=== PATIENT | female | born 1980 | race Caucasian/White ===

== ENCOUNTER 2020-09-16 11:56 | Emergency (ER) | payer SELFPAY ==
[2020-09-16] MEDS ORDERED: NORMAL SALINE 1000 ML 1,000 ML IV ONE (12:46)
[2020-09-16] MEDS ORDERED: MECLIZINE HCL 25 MG TABLET PO ONE ×2 (12:48→16:15)
--- NOTE | 2020-09-16 12:55 | ER Document Report ---
ED Medical Screen (RME) - General Chief Complaint: Dizziness Stated Complaint: DIZZINESS Time Seen by Provider: 09/16/20 12:39 Primary Care Provider: GARRY MURO MD [Primary Care Provider] - Follow up as needed - [facility] Notes: 09/16/20 12:50 40-year-old female presents to the emergency room today for complaints of dizziness, nausea, and coughing that has been persistent for the last 6 days. Patient states that she feels unsteady, denies the room spinning or she is spinning. Patient reports she has been having some polydipsia. Reports a dry cough. Denies any positive Covid test or being around anybody who is Covid positive. Denies getting flu shot this year. Last menstrual cycle was 09/15/2020. Patient denies being a smoker. Denies any chest pain, shortness of breath, vomiting, abdominal pain, diarrhea, fevers or chills. I have greeted and performed a rapid initial assessment of this patient. A comprehensive ED assessment and evaluation of the patient, analysis of test results and completion of the medical decision making process will be conducted by additional ED providers. PHYSICAL EXAMINATION: GENERAL: Well-appearing, well-nourished and in no acute distress. HEAD: Atraumatic, normocephalic. EYES: Pupils equal round extraocular movements intact, conjunctiva are normal. ENT: Bilateral TM with effusion, no erythema. TM intact bilaterally NECK: Normal range of motion CV: s1, s2 regular LUNGS: No respiratory distress Musculoskeletal: Normal range of motion NEUROLOGICAL: Normal speech, normal gait. SKIN: Warm, Dry, normal turgor, no rashes or lesions noted. - Related Data Allergies/Adverse Reactions: No Known Allergies Allergy (Unverified 01/30/13 11:32) Past Medical History Endocrine Medical History: Denies: Hx Hyperthyroidism, Hx Hypothyroidism Physical Exam - Vital signs Vitals: Temp Pulse Resp BP Pulse Ox 98.0 F 81 18 131/77 H 93 09/16/20 12:33 09/16/20 12:33 09/16/20 12:33 09/16/20 12:33 09/16/20 12:33 Course - Vital Signs Vital signs: Temp Pulse Resp BP Pulse Ox 98.0 F 81 18 131/77 H 93 09/16/20 12:33 09/16/20 12:33 09/16/20 12:33 09/16/20 12:33 09/16/20 12:33 Doctor's Discharge - Discharge Referrals: GARRY MURO MD [Primary Care Provider] - Follow up as needed
[2020-09-16 13:30] LABS: ABSOLUTE LYMPHOCYTES (AUTO) 1.3 10^3/uL (0.5-4.7); ABSOLUTE MONOCYTES (AUTO) 0.2 10^3/uL (0.1-1.4); ABSOLUTE NEUT (AUTO) 4.6 10^3/uL (1.7-8.2); BASOPHILS % (AUTO) 0.4 % (0-2); HEMATOCRIT 38.9 % (36.0-47.0); HEMOGLOBIN 13.5 g/dL (12.0-15.5); LYMPHOCYTES % (AUTO) 20.6 % (13-45); MEAN CORPUSCULAR HEMOGLOBIN 29.5 pg (27.0-33.4); MEAN CORPUSCULAR HGB CONC 34.7 g/dL (32.0-36.0); MEAN CORPUSCULAR VOLUME 85 fl (80-97); MONOCYTES % (AUTO) 3.7 % (3-13); PLATELET COUNT 219 10^3/uL (150-450); RED BLOOD COUNT 4.58 10^6/uL (3.72-5.28); RED CELL DISTRIBUTION WIDTH 12.8 % (11.5-14.0); SEGMENTED NEUTROPHILS % (AUTO) 75.3 % (42-78); TOTAL CELLS COUNTED % (AUTO) 100 %; WHITE BLOOD COUNT 6.1 10^3/uL (4.0-10.5)
--- NOTE | 2020-09-16 13:30 | EKG REPORT ---
SEVERITY:- BORDERLINE ECG - SINUS RHYTHM BORDERLINE T ABNORMALITIES, ANTERIOR LEADS : Confirmed by: Carina Sanchez MD 16-Sep-2020 13:30:27
[2020-09-16 13:51] LABS: ALKALINE PHOSPHATASE 77 U/L (38-126); ANION GAP 16 (5-19); ASPARTATE AMINO TRANSFERASE 33 U/L (14-36); BILIRUBIN,DIRECT 0.3 mg/dL (0.0-0.4); BILIRUBIN,TOTAL 0.9 mg/dL (0.2-1.3); BLOOD UREA NITROGEN 14 mg/dL (7-20); CALCIUM 8.9 mg/dL (8.4-10.2); CARBON DIOXIDE 22 mmol/L (22-30); CHLORIDE 89 mmol/L (98-107); GLUCOSE 256 mg/dL (75-110); POTASSIUM 3.8 mmol/L (3.6-5.0)
--- NOTE | 2020-09-16 14:42 | RADIOLOGY REPORT (SQ) ---
EXAM DESCRIPTION: CT HEAD WITHOUT IMAGES COMPLETED DATE/TIME: 09/16/2020 2:27 pm REASON FOR STUDY: dizziness x 5d COMPARISON: None. TECHNIQUE: Axial images acquired through the brain without intravenous contrast. Images reviewed wi th bone, brain and subdural windows. Additional sagittal and coronal reconstructions were generated. Images stored on PACS. All CT scanners at this facility use dose modulation, iterative reconstruction, and/or weight based d osing when appropriate to reduce radiation dose to as low as reasonably achievable (ALARA). [facility]: Dose Right [facility]: CareDose [facility]: Dose Right [facility]: Teradose 4D [facility]: [email or web address] RADIATION DOSE: CT Rad equipment meets quality standard of care and radiation dose reduction techniq ues were employed. CTDIvol: 48.9 mGy. DLP: 960 mGy-cm. mGy. LIMITATIONS: None. FINDINGS: VENTRICLES: Normal size and contour. CEREBRUM: No masses. No hemorrhage. No midline shift. No evidence for acute infarction. Normal gra y/white matter differentiation. No areas of low density in the white matter. CEREBELLUM: No masses. No hemorrhage. No alteration of density. No evidence for acute infarction. EXTRAAXIAL SPACES: No fluid collections. No masses. ORBITS AND GLOBE: No intra- or extraconal masses. Normal contour of globe without masses. CALVARIUM: No fracture. PARANASAL SINUSES: No fluid or mucosal thickening. SOFT TISSUES: No mass or hematoma. OTHER: No other significant finding. IMPRESSION: NORMAL BRAIN CT WITHOUT CONTRAST. EVIDENCE OF ACUTE STROKE: NO. COMMENT: Quality ID # [id number]: Final reports with documentation of one or more dose reduction techniques (e.g., Automated exposure control, adjustment of the mA and/or kV according to patient size, use of iterative reconstruction technique) TECHNICAL DOCUMENTATION: JOB ID: [id number] 2010 [employer]- All Rights Reserved Reading location - IP/workstation name: [email or web address]
--- NOTE | 2020-09-16 14:43 | RADIOLOGY REPORT (SQ) ---
EXAM DESCRIPTION: CHEST SINGLE VIEW IMAGES COMPLETED DATE/TIME: 09/16/2020 2:31 pm REASON FOR STUDY: cough COMPARISON: 10/08/2009 EXAM PARAMETERS: NUMBER OF VIEWS: One view. TECHNIQUE: Single frontal radiographic view of the chest acquired. RADIATION DOSE: NA LIMITATIONS: None. FINDINGS: LUNGS AND PLEURA: Patchy peripheral infiltrates suspicious for viral pneumonia. No consol idation or effusions. MEDIASTINUM AND HILAR STRUCTURES: No masses. Contour normal. HEART AND VASCULAR STRUCTURES: Heart normal in size. Normal vasculature. BONES: No acute findings. HARDWARE: None in the chest. OTHER: No other significant finding. IMPRESSION: Patchy bilateral peripheral infiltrates suspicious for viral pneumonia. COMMENT: Commonly reported imaging features of COVID-19 1 pneumonia are present. Other processes s uch as influenza pneumonia and organizing pneumonia, as can be seen with drug toxicity and connective tissue disease, can cause a similar imaging pattern. [facility] TECHNICAL DOCUMENTATION: JOB ID: [id number] 2010 [email or web address]- All Rights Reserved Reading location - IP/workstation name: [email or web address]
--- NOTE | 2020-09-16 16:59 | ER Document Report ---
ED Dizziness/Weakness - General Chief Complaint: Dizziness Stated Complaint: DIZZINESS Time Seen by Provider: 09/16/20 12:39 Primary Care Provider: GARRY MURO MD [ACTIVE STAFF] - Follow up as needed Mode of Arrival: Ambulatory Information source: Patient Notes: 40-year-old female with no previous medical problems presents to the emergency room complaining of dizziness, subjective fever chills, increased thirst, cough, nausea for the past week. States she is been taking BC powder without relief. Along with some Delsym for cough. She denies any ill contacts. She denies any known COVID-19 exposure. Does not feel like she is spinning of the room spinning. She cannot describe the dizziness. No history of vertigo. No head trauma or head injuries. TRAVEL OUTSIDE OF THE [place] IN LAST 30 DAYS: No - Related Data Allergies/Adverse Reactions: No Known Allergies Allergy (Unverified 01/30/13 11:32) Past Medical History - General Information source: Patient - Social History Smoking Status: Never Smoker Chew tobacco use (# tins/day): No Frequency of alcohol use: None Drug Abuse: None Family History: DM Endocrine Medical History: Denies: Hx Hyperthyroidism, Hx Hypothyroidism Review of Systems - Review of Systems Constitutional: Chills, Fever EENT: No symptoms reported Cardiovascular: Dizziness. denies: Chest pain, Palpitations Respiratory: Cough Gastrointestinal: Nausea. denies: Diarrhea, Vomiting, Constipation Genitourinary: No symptoms reported Musculoskeletal: No symptoms reported Skin: No symptoms reported Hematologic/Lymphatic: No symptoms reported Neurological/Psychological: No symptoms reported -: Yes All other systems reviewed and negative Physical Exam - Vital signs Vitals: Temp Pulse Resp BP Pulse Ox 98.0 F 81 18 131/77 H 93 09/16/20 12:33 09/16/20 12:33 09/16/20 12:33 09/16/20 12:33 09/16/20 12:33 - General General appearance: Appears well, Alert In distress: Mild - HEENT Head: Normocephalic, Atraumatic Eyes: Normal Pupils: PERRL External canal: Normal Tympanic membrane: Normal Sinus: Normal Nasal: Normal Pharynx: Normal Neck: Normal - Respiratory Respiratory status: No respiratory distress Chest status: Nontender Breath sounds: Rhonchi - Scattered. No: Rales, Stridor, Wheezing Chest palpation: Normal - Cardiovascular Rhythm: Regular Heart sounds: Normal auscultation Murmur: No - Neurological Neuro grossly intact: Yes Cognition: Normal Orientation: AAOx4 Nessa Coma Scale Eye Opening: Spontaneous [place] Coma Scale Verbal: Oriented [place] Coma Scale Motor: Obeys Commands Nessa Coma Scale Total: 15 Speech: Normal Motor strength normal: LUE, RUE, LLE, RLE Sensory: Normal - Skin Skin Temperature: Warm Skin Moisture: Dry Skin Color: Normal Course - Re-evaluation Re-evalutation: 09/16/20 17:06 Patient was evaluated during the global COVID-19 pandemic and that diagnosis was suspected/considered upon their initial presentation. Their evaluation, treatment and testing was consistent with current guidelines for patients who presents with complaints or systems that may be related to COVID-19. 09/16/20 17:20 Reviewed initial labs, CT head and chest x-ray results with patient. Counseled that her chest x-ray is consistent with a viral pneumonia possible COVID-19 related. IV fluids infusing. Repeat sodium after fluids are completed. Will need a urinalysis, orthostatics, Covid swab ordered. 09/16/20 17:20 09/16/20 17:34 Vital signs are stable. Patient is tolerating p.o. fluids. Negative orthostatics. Repeat sodium pending. Urinalysis pending. 09/16/20 17:35 09/16/20 19:40 All test results reviewed with the patient. Sodium has improved. Reviewed hemoglobin A1c of 9.8 with patient. No signs of DKA. Patient was counseled on the importance of following a diabetic diet. Will start patient on Metformin. Aware of need for outpatient follow-up with a primary care physician for management of her diabetes. Patient did have Covid testing. Is aware she needs to self quarantine until she gets her Covid test results back. Patient was given strict return to the emergency room guidelines. Return for any new or worsening symptoms. All questions were answered. Patient verbalized understanding and agrees with plan of care. Case was staffed with attending Dr Cordon who reviewed all labs, xrays and ct and is agreeable to d/c with plant to start on Metformin. 09/16/20 21:15 - Vital Signs Vital signs: Temp Pulse Resp BP Pulse Ox 98.7 F 88 20 140/68 H 96 09/16/20 20:18 11/20/20 20:18 09/16/20 20:18 09/16/20 20:18 09/16/20 20:18 - Laboratory Result Diagrams: 09/16/20 13:02 09/16/20 18:10 Laboratory results interpreted by me: 09/16/20 09/16/20 09/16/20 13:02 13:02 18:10 Sodium 127.2 L 128.7 L Chloride 89 L Glucose 256 H Hemoglobin A1c % 9.8 H Urine Protein Urine Glucose (UA) Urine Ketones Urine Blood Urine Urobilinogen 09/16/20 18:10 Sodium Chloride Glucose Hemoglobin A1c % Urine Protein 30 H Urine Glucose (UA) >=500 H Urine Ketones 80 H Urine Blood SMALL H Urine Urobilinogen 2.0 H - Diagnostic Test Radiology reviewed: Reports reviewed - EKG Interpretation by Me EKG shows normal: Sinus rhythm Rate: Normal Additional EKG results interpreted by me: 09/16/20 16:57 EKG was interpreted by ER physician Dr. Leblanc No acute STEMI Normal sinus rhythm Rate 81 Normal axis Borderline T wave abnormalities 09/16/20 16:58 Discharge - Discharge Clinical Impression: Dizziness, COVID-19, Viral pneumonia Nausea & vomiting Qualifiers: Vomiting type: unspecified Vomiting Intractability: non-intractable Qualified Code(s): R11.2 - Nausea with vomiting, unspecified Diabetes Qualifiers: Diabetes mellitus type: type 2 Diabetes mellitus detention insulin use: without oysterman use Diabetes mellitus complication status: without complication Qualified Code(s): E11.9 - Type 2 diabetes mellitus without complications Condition: Stable Disposition: HOME, SELF-CARE Instructions: COVID-19 Guidance for Persons Under Investigation, Diabetes (OM), Dizziness (OM), Viral Pneumonia (OM) Additional Instructions: You will be notified of your Covid test in 3 to 5 days. You are required to self quarantine until you get your Covid test results back. Take the Metformin as prescribed. Is imperative that you follow-up outpatient with a primary care physician. Diabetic diet. Monitor your blood sugars. Return to the emergency room for any new or worsening symptoms. Prescriptions: Metformin HCl [Glucophage 500 mg Tablet] 500 mg PO DAILY #30 tablet Referrals: GARRY MURO MD [ACTIVE STAFF] - Follow up as needed
[2020-09-16 18:41] LABS: APPEARANCE,URINE CLEAR; BILIRUBIN,URINE NEGATIVE (NEGATIVE); COLOR,URINE YELLOW; GLUCOSE, URINE >=500 mg/dL (NEGATIVE); KETONES,URINE 80 mg/dL (NEGATIVE); LEUKOCYTE ESTERASE,URINE NEGATIVE (NEGATIVE); NITRITE,URINE NEGATIVE (NEGATIVE); PROTEIN,URINE 30 mg/dL (NEGATIVE); URINE SPECIFIC GRAVITY 1.023
[2020-09-16 20:23] VITALS: BP 140/68
== END 2020-09-16 20:25 | disposition home or self-care (01) ==
LOC: ER 11:56
DX: J18.9 Pneumonia, unspecified organism (principal); R42 Dizziness and giddiness; R50.9 Fever, unspecified; R11.2 Nausea with vomiting, unspecified; Z20.828 Contact with and (suspected) exposure to other viral communicable diseases; E11.9 Type 2 diabetes mellitus without complications
CPT/HCPCS: 93005; 99285; 96360; 36415; 84702; 83735; 84295; 85025; 87635; 80053; 81001; 84484; 83036; 71045; 70450; 93010; J7030; C9803

== ENCOUNTER 2020-09-21 21:41 | Inpatient (IN) | payer SELFPAY ==
--- NOTE | 2020-09-21 22:59 | EKG REPORT ---
SEVERITY:- BORDERLINE ECG - SINUS TACHYCARDIA BORDERLINE T ABNORMALITIES, INFERIOR LEADS : Confirmed by: Ammon Jensen MD 21-Sep-2020 22:58:51
--- NOTE | 2020-09-21 23:09 | ER Document Report ---
ED Respiratory Problem - General Stated Complaint: DIFFICULTY IN BREATHING/COUGH/DIZZINESS Time Seen by Provider: 09/21/20 23:00 Notes: Patient is a 40 year old female that comes to the Emergency Department for chief complaint of difficulty breathing, pain with deep breaths, feeling rundown, and intermittent fevers. She states that she was seen 5 days ago, told she most likely had COVID-19, she states she was sent home, she states she is worsened since then. She states she was told yesterday that she had a negative COVID-19 test however. She states she has felt feverish for the past day. She denies sore throat, vomiting, or any other complaints. She has a history of type 2 diabetes, on oral medication. She denies smoking, COPD, asthma history. She denies any medical history otherwise. TRAVEL OUTSIDE OF THE [place] IN LAST 30 DAYS: No - Related Data Allergies/Adverse Reactions: No Known Allergies Allergy (Unverified 01/30/13 11:32) Past Medical History - General Information source: Patient - Social History Smoking Status: Never Smoker Frequency of alcohol use: None Drug Abuse: None Lives with: Family Family History: DM Endocrine Medical History: Reports: Hx Diabetes Mellitus Type 2. Denies: Hx Hyperthyroidism, Hx Hypothyroidism Review of Systems - Review of Systems Constitutional: No symptoms reported EENT: No symptoms reported Cardiovascular: No symptoms reported Respiratory: No symptoms reported Gastrointestinal: No symptoms reported Genitourinary: No symptoms reported Female Genitourinary: No symptoms reported Musculoskeletal: No symptoms reported Skin: No symptoms reported Hematologic/Lymphatic: No symptoms reported Neurological/Psychological: No symptoms reported Physical Exam - Vital signs Vitals: Temp Pulse Resp BP Pulse Ox 98.2 F 101 H 24 H 104/70 89 L 09/21/20 22:01 09/21/20 22:01 09/21/20 22:01 09/21/20 22:01 09/21/20 22:01 - Notes Notes: GENERAL: Alert. Slightly ill-appearing but otherwise unremarkable. No signs of distress. HEAD: Normocephalic, atraumatic. EYES: Pupils equal, round, and reactive to light. Extraocular movements intact. ENT: Oral mucosa moist, tongue midline. Oropharynx unremarkable. Airway patent. NECK: Full range of motion. Supple. Trachea midline. No lymphadenopathy. LUNGS: Rales heard in the right mid to lower lung bases and questionably in the left lower lung evangelista. No tachypnea, wheezing, signs of distress. Otherwise unremarkable. Nontender chest. HEART: Regular rate and rhythm. No murmur ABDOMEN: Soft, non-tender. Non-distended. EXTREMITIES: Moves all 4 extremities spontaneously. No edema, normal radial and dorsalis pedis pulses bilaterally. No cyanosis. BACK: no cervical, thoracic, lumbar midline tenderness. No saddle anesthesia, normal distal neurovascular exam. Moves all extremities in full range of motion. NEUROLOGICAL: Alert and oriented x3. Normal speech. Cranial nerves II through XII grossly intact. Strength 5/5 in all extremities. PSYCH: Normal affect, normal mood. SKIN: Warm, dry, normal turgor. No rashes or lesions noted. Course - Re-evaluation Re-evalutation: Patient has rales especially in the right lung evangelista, she is hypoxic in the mid to upper 80s on room air and was placed on oxygen. However she is speaking in full sentences, she is not tachycardic, she is otherwise nontoxic in appearance. Chest x-ray indicates worsening pneumonia, I do suspect COVID-19, influenza will be tested as well. CBC, chemistry nonspecific, troponin is not elevated, BNP is not elevated. I did discuss with patient her hyponatremia, she denies alcohol use, she does admit that she drinks water constantly. EKG unremarkable. Reevaluate patient and discussed with her. Antibiotics initiated, starting dexamethasone and also IV fluids because of her hyperglycemia. Patient is in agreement with admission. Discussed with Dr. Houston, hospitalist. Patient will be admitted to the medical floor for pneumonia and hypoxia with oxygen requirement. - Vital Signs Vital signs: Temp Pulse Resp BP Pulse Ox 98.6 F 101 H 17 102/76 95 09/22/20 03:01 09/21/20 22:01 09/22/20 03:01 09/22/20 03:01 09/22/20 03:01 - Laboratory Result Diagrams: 09/21/20 23:45 09/21/20 23:45 Laboratory results interpreted by me: 09/21/20 09/21/20 09/21/20 23:45 23:45 23:45 VBG pH 7.47 H Sodium 127.2 L Potassium 3.1 L Chloride 87 L Glucose 237 H Magnesium 2.4 H AST 48 H Albumin 3.4 L - EKG Interpretation by Me Additional EKG results interpreted by me: EKG shows sinus tachycardia at a rate of 100, normal axis, there are flattened T waves inferiorly but no T wave inversions or seven changes in consecutive leads. QTc 465. Discharge - Discharge Clinical Impression: Hypoxia, Shortness of breath, Person under investigation for COVID-19 Bilateral pneumonia Qualifiers: Pneumonia type: due to unspecified organism Lung location: unspecified part of lung Qualified Code(s): J18.9 - Pneumonia, unspecified organism Condition: Stable Disposition: ADMITTED INPATIENT Admitting Provider: Rosemarie (Hospitalist) Unit Admitted: Medical Floor
--- NOTE | 2020-09-21 23:43 | RADIOLOGY REPORT (SQ) ---
EXAM DESCRIPTION: XR CHEST 1 VIEW COMPLETED DATE/TME: 09/21/2020 23:14 CLINICAL HISTORY: 40 years, Female, hypoxia, rales in right lung COMPARISON: September 16, 2020 NUMBER OF VIEWS: 1 TECHNIQUE: Portable AP upright view of the chest was obtained at 11:08 PM. LIMITATIONS: None. FINDINGS: Moderate patchy bilateral infiltration is identified, overall increased from the prior examination, more so within the right lung base. There is stable, mild cardiac enlargement. There is no evidence of pleural effusion or pneumothorax. IMPRESSION: Worsening bilateral infiltration. copyright 2010 [employer]- All Rights Reserved
[2020-09-21] MEDS ORDERED: NORMAL SALINE 1000 ML 1,000 ML IV ONE (23:47)
[2020-09-21] MEDS ORDERED: CEFTRIAXONE 1 GM/D5W RTU 1 GM/50 ML RTUPB IV ONE (23:47)
[2020-09-21] MEDS ORDERED: AZITHROMYCIN INJ 500 MG VIAL IV ONE (23:48)
[2020-09-22 00:11] LABS: VENOUS BLOOD BASE EXCESS 5.7 mmol/L; VENOUS BLOOD HCO3 30.1 mmol/L (20-32); VENOUS BLOOD PCO2 42.8 mmHg (35-63); VENOUS BLOOD PH 7.47 (7.30-7.42)
[2020-09-22 00:16] LABS: ABSOLUTE EOSINOPHILS # (AUTO) 0.1 10^3/uL (0.0-0.6); ABSOLUTE LYMPHOCYTES (AUTO) 1.4 10^3/uL (0.5-4.7); ABSOLUTE MONOCYTES (AUTO) 0.5 10^3/uL (0.1-1.4); ABSOLUTE NEUT (AUTO) 4.1 10^3/uL (1.7-8.2); BASOPHILS % (AUTO) 0.4 % (0-2); EOSINOPHILS % (AUTO) 2.1 % (0-6); HEMATOCRIT 37.1 % (36.0-47.0); HEMOGLOBIN 12.9 g/dL (12.0-15.5); LYMPHOCYTES % (AUTO) 22.3 % (13-45); MEAN CORPUSCULAR HEMOGLOBIN 29.7 pg (27.0-33.4); MEAN CORPUSCULAR HGB CONC 34.8 g/dL (32.0-36.0); MEAN CORPUSCULAR VOLUME 85 fl (80-97); MONOCYTES % (AUTO) 7.9 % (3-13); PLATELET COUNT 425 10^3/uL (150-450); RED BLOOD COUNT 4.35 10^6/uL (3.72-5.28); RED CELL DISTRIBUTION WIDTH 12.7 % (11.5-14.0); SEGMENTED NEUTROPHILS % (AUTO) 67.3 % (42-78); TOTAL CELLS COUNTED % (AUTO) 100 %; WHITE BLOOD COUNT 6.1 10^3/uL (4.0-10.5)
[2020-09-22 00:25] LABS: ALBUMIN 3.4 g/dL (3.5-5.0); ALKALINE PHOSPHATASE 111 U/L (38-126); ANION GAP 10 (5-19); ASPARTATE AMINO TRANSFERASE 48 U/L (14-36); BILIRUBIN,DIRECT 0.2 mg/dL (0.0-0.4); BILIRUBIN,TOTAL 0.8 mg/dL (0.2-1.3); BLOOD UREA NITROGEN 9 mg/dL (7-20); CALCIUM 8.7 mg/dL (8.4-10.2); CARBON DIOXIDE 30 mmol/L (22-30); CHLORIDE 87 mmol/L (98-107); GLUCOSE 237 mg/dL (75-110); POTASSIUM 3.1 mmol/L (3.6-5.0); TOTAL PROTEIN 6.9 g/dL (6.3-8.2)
[2020-09-22 00:35] LABS: NT PRO BNP 91 pg/mL (<125)
[2020-09-22 00:36] LABS: TROPONIN I < 0.012 ng/mL
[2020-09-22] MEDS ORDERED: DEXAMETHASONE SOD PHOS INJ 10 MG/1 ML VIAL IV ONE (00:44)
[2020-09-22] MEDS ORDERED: ACETAMINOPHEN 325 MG TABLET PO PRN (01:29)
[2020-09-22] MEDS ORDERED: POTASSIUM CHLORIDE 10 MEQ TABLET.ER PO ONE ×2 (01:34→15:00)
[2020-09-22] MEDS ORDERED: MAG HYDROX/AL HYDROX/SIMETH SUSP 30 ML UDCUP PO PRN (01:35)
[2020-09-22] MEDS ORDERED: ONDANSETRON HCL INJ/PF 4 MG/2 ML SDV IV PRN (01:35)
[2020-09-22] MEDS ORDERED: GUAIFENESIN/D-METHORPHAN (200-20 MG) SYRUP 10 ML PO PRN (01:40)
[2020-09-22] MEDS ORDERED: DEXTROSE 40% GEL 15 GM TUBE PO PRN ×2 (01:42)
[2020-09-22] MEDS ORDERED: GLUCAGON,HUMAN RECOMB 1 MG INJ IM PRN (01:42)
[2020-09-22] MEDS ORDERED: DEXTROSE 50%-WATER 25 GM/50 ML DISP.SYRIN IV PRN ×2 (01:42)
[2020-09-22] MEDS ORDERED: IBUPROFEN 400 MG TABLET PO PRN (01:51)
--- NOTE | 2020-09-22 02:04 | PDOC H&P ---
History of Present Illness Admission Date/PCP: 09/22/20 01:18 Patient complains of: Shortness of breath and cough History of Present Illness: LOLI EM is a 40 year old female with history of diabetes mellitus type 2, morbid obesity, who presents to the hospital with complaints of shortness of breath and cough. This has been going on for about a week. Cough is productive of yellowish sputum. She denies any hemoptysis. She admits to body aches which are mild. She also admits to subjective fevers. Shortness of breath was quite bad and she did had some dizziness and actually came to the ER about 4 days ago. At that time patient was tested for COVID-19 and discharged home on isolation. She was later called and told that her COVID-19 test was negative. Given the surprise, she decided to come back to the hospital to find out what was wrong wi th her. Her symptoms actually have not progressed since then but about the same. However, this time she was noted to be hypoxic at 88% on room air. Chest x-ray still shows bilateral infiltrates. Past Medical History Endocrine Medical History: Reports: Diabetes Mellitus Type 2 Past Surgical History Past Surgical History: Reports: Section Social History Information Source: Patient Smoking Status: Current Some Day Smoker Frequency of Alcohol Use: None Hx Recreational Drug Use: No - Advance Directive Resuscitation Status: Full Code Family History Family History: DM Parental Family History Reviewed: Yes Children Family History Reviewed: Yes Sibling(s) Family History Reviewed.: Yes Medication/Allergy Home Medications: Docusate Sodium [Colace 100 mg Capsule] 100 mg PO BID 03/06/13 Ibuprofen [Motrin 800 Mg Tablet] 800 mg PO Q8H 03/06/13 Oxycodone HCl/Acetaminophen [Percocet 5-325 mg Tablet] 1 - 2 tab PO Q4HP PRN 03/06/13 Pnv W-O Ca No5/Fe Fumarate/FA [-U Capsule] 1 cap PO DAILY 03/06/13 Metformin HCl [Glucophage 500 mg Tablet] 500 mg PO DAILY #30 tablet 09/16/20 Allergies/Adverse Reactions: No Known Allergies Allergy (Unverified 01/30/13 11:32) Review of Systems Constitutional: PRESENT: chills, fever(s), headache(s) Eyes: ABSENT: visual disturbances Ears: ABSENT: hearing changes Nose, Mouth, and Throat: PRESENT: headache(s) Cardiovascular: PRESENT: chest pain - Parasternal pleuritic when she coughs. ABSENT: edema Respiratory: PRESENT: cough, dyspnea, sputum. ABSENT: hemoptysis Gastrointestinal: ABSENT: diarrhea, nausea, vomiting Genitourinary: ABSENT: dysuria Musculoskeletal: ABSENT: muscle weakness Integumentary: ABSENT: diaphoresis Neurological: PRESENT: dizziness Endocrine: ABSENT: polyuria Hematologic/Lymphatic: ABSENT: easy bleeding Allergic/Immunologic: PRESENT: other - Mild rhinorrhea Physical Exam Vital Signs: Temp Pulse Resp BP Pulse Ox 98.2 F 101 H 21 H 100/68 95 09/21/20 22:01 09/21/20 22:01 09/22/20 01:00 09/22/20 00:01 09/22/20 01:00 Intake & Output 09/20/20 09/21/20 09/22/20 06:59 06:59 06:59 Weight 119.1 kg General appearance: PRESENT: no acute distress, cooperative Head exam: PRESENT: normocephalic Eye exam: PRESENT: EOMI Neck exam: ABSENT: JVD Respiratory exam: PRESENT: crackles, symmetrical, tachypnea, unlabored. ABSENT: accessory muscle use, retraction, wheezes Cardiovascular exam: PRESENT: RRR, +S1, +S2. ABSENT: tachycardia GI/Abdominal exam: PRESENT: soft. ABSENT: rebound, rigid, tenderness Extremities exam: ABSENT: pedal edema Neurological exam: PRESENT: alert, awake, oriented to person, oriented to place, oriented to time, oriented to situation Psychiatric exam: ABSENT: agitated, anxious Focused psych exam: ABSENT: pressured speech Skin exam: ABSENT: jaundice Results Laboratory Results: 09/21/20 23:45 09/21/20 23:45 09/21/20 09/21/20 09/21/20 23:45 23:45 23:45 WBC 6.1 RBC 4.35 Hgb 12.9 Hct 37.1 MCV 85 MCH 29.7 MCHC 34.8 RDW 12.7 Plt Count 425 Seg Neutrophils % 67.3 VBG pH 7.47 H VBG pCO2 42.8 VBG HCO3 30.1 VBG Base Excess 5.7 Sodium 127.2 L Potassium 3.1 L Chloride 87 L Carbon Dioxide 30 Anion Gap 10 BUN 9 Creatinine 0.80 Est GFR ( Amer) > 60 Glucose 237 H Calcium 8.7 Magnesium Total Bilirubin 0.8 AST 48 H Alkaline Phosphatase 111 Total Protein 6.9 Albumin 3.4 L Serum HCG, Qual 09/21/20 09/21/20 23:45 23:45 WBC RBC Hgb Hct MCV MCH MCHC RDW Plt Count Seg Neutrophils % VBG pH VBG pCO2 VBG HCO3 VBG Base Excess Sodium Potassium Chloride Carbon Dioxide Anion Gap BUN Creatinine Est GFR ( Amer) Glucose Calcium Magnesium 2.4 H Total Bilirubin AST Alkaline Phosphatase Total Protein Albumin Serum HCG, Qual NEGATIVE 09/21/20 23:45 Troponin I < 0.012 NT-Pro-B Natriuret Pep 91 Impressions: Chest X-Ray 09/21/20 23:08 IMPRESSION: Worsening bilateral infiltration. copyright 2010 [employer]- All Rights Reserved Assessment and Plan - Diagnosis (1) Atypical pneumonia Is this a current diagnosis for this admission?: Yes Plan: Chest x-ray shows bilateral infiltrates suggestive of atypical pneumonia. COVID-19 test was negative on the last visit but still there is still significant suspicion for COVID-19 so she will be retested Check for influenza Start on empiric antibiotics with ceftriaxone. Azithromycin for atypical coverage. Check sputum culture Follow-up blood culture Robitussin, zinc, vitamin, albuterol, dexamethasone Check D-dimer (2) Acute respiratory failure with hypoxia Is this a current diagnosis for this admission?: Yes Plan: Noted to be 88% at rest on room air. Likely secondary to her pneumonia. We will check D-dimer and if elevated will check a CTA of chest. SPO2 is in the low 90s on 2 L nasal cannula. Will monitor. (3) Hyponatremia Is this a current diagnosis for this admission?: Yes Plan: Sodium at 127. Appears euvolemic. Patient actually endorses drinking lots of fluids. She just received a bag of normal saline so we will repeat a BMP and proceed accordingly. If no improvement, will obtain urine sodium and urine osmolarity as well. (4) Costochondritis, acute Is this a current diagnosis for this admission?: Yes Plan: Secondary to pneumonia. NSAIDs as needed. (5) Diabetes Qualifiers: Diabetes mellitus type: type 2 Diabetes mellitus predatory animal exterminator insulin use: without predatory animal exterminator use Diabetes mellitus complication status: without complication Qualified Code(s): E11.9 - Type 2 diabetes mellitus without complications Is this a current diagnosis for this admission?: Yes Plan: Recently diagnosed. Hemoglobin A1c of 9.8 on last visit. We will keep patient on sliding scale and Accu-Cheks for now and hold Metformin. She may need a standing insulin coverage especially given that we are starting steroids. (6) Obesity (BMI 30-39.9) Is this a current diagnosis for this admission?: Yes Plan: Carb restricted diet - Time Time Spent with patient: 35 or more minutes Anticipated Discharge Disposition: Home, Self Care Anticipated Discharge Timeframe: Unknown
[2020-09-22 07:58] LABS: A TYPE INFLUENZA AG NEGATIVE (NEGATIVE); B INFLUENZA AG NEGATIVE (NEGATIVE)
[2020-09-22 08:51] LABS: ANION GAP 9 (5-19); BLOOD UREA NITROGEN 9 mg/dL (7-20); CALCIUM 8.7 mg/dL (8.4-10.2); CARBON DIOXIDE 28 mmol/L (22-30); CHLORIDE 95 mmol/L (98-107); GLUCOSE 316 mg/dL (75-110)
[2020-09-22] MEDS: INSULIN LISPRO 100 UNIT/ML 3 ML VIAL SUBCUT SCH ×4 (10:00→22:46)
[2020-09-22] MEDS ORDERED: ENOXAPARIN SODIUM INJ 40 MG/0.4 ML DISP.SYRIN SUBCUT SCH (10:00)
[2020-09-22] MEDS: ASCORBIC ACID 500 MG TABLET PO SCH ×2 (10:25→17:41)
[2020-09-22] MEDS: ZINC SULFATE 220 MG CAPSULE PO SCH (10:25)
[2020-09-22] MEDS: CHOLECALCIFEROL (D3) 1,000 UNIT (25 MCG) TABLET PO SCH (10:25)
[2020-09-22] MEDS: ALBUTEROL SULFATE HFA (90 MCG/PUFF) 8 GM MDI IH SCH ×2 (11:00→14:09)
[2020-09-22] MEDS ORDERED: IPRATROPIUM/ALBUTEROL 0.5-2.5 MG/3 ML AMPUL NEB PRN (15:02)
[2020-09-22] MEDS: IPRATROPIUM/ALBUTEROL 0.5-2.5 MG/3 ML AMPUL NEB SCH (20:17)
[2020-09-22] MEDS ORDERED: AZITHROMYCIN INJ 500 MG VIAL IV SCH (22:00)
[2020-09-22] MEDS: AZITHROMYCIN 250 MG in DEXTROSE 5%-WATER 250 ML IV SCH (22:43)
[2020-09-22] MEDS: ENOXAPARIN SODIUM INJ 120 MG/0.8 ML DISP.SYRIN SUBCUT SCH (22:45)
[2020-09-22] MEDS: GUAIFENESIN 600 MG TABLET.SA PO SCH (22:46)
[2020-09-22] MEDS: CEFTRIAXONE 2 GM/D5W RTU 2 GM/50 ML RTUPB IV SCH (22:48)
[2020-09-23 05:26] LABS: HEMATOCRIT 35.3 % (36.0-47.0); MEAN CORPUSCULAR HEMOGLOBIN 29.1 pg (27.0-33.4); MEAN CORPUSCULAR HGB CONC 33.8 g/dL (32.0-36.0); MEAN CORPUSCULAR VOLUME 86 fl (80-97); PLATELET COUNT 379 10^3/uL (150-450); RED BLOOD COUNT 4.11 10^6/uL (3.72-5.28); WHITE BLOOD COUNT 5.4 10^3/uL (4.0-10.5)
[2020-09-23 05:51] LABS: ALBUMIN 3.2 g/dL (3.5-5.0); ALKALINE PHOSPHATASE 84 U/L (38-126); ANION GAP 10 (5-19); ASPARTATE AMINO TRANSFERASE 27 U/L (14-36); BILIRUBIN,DIRECT 0.2 mg/dL (0.0-0.4); BILIRUBIN,TOTAL 0.5 mg/dL (0.2-1.3); BLOOD UREA NITROGEN 13 mg/dL (7-20); CALCIUM 8.8 mg/dL (8.4-10.2); CARBON DIOXIDE 28 mmol/L (22-30); CHLORIDE 98 mmol/L (98-107); GLUCOSE 187 mg/dL (75-110); PHOSPHORUS 5.5 mg/dL (2.5-4.5); POTASSIUM 3.7 mmol/L (3.6-5.0); TOTAL PROTEIN 6.5 g/dL (6.3-8.2)
[2020-09-23] MEDS: IPRATROPIUM/ALBUTEROL 0.5-2.5 MG/3 ML AMPUL NEB SCH ×3 (07:42→20:01)
[2020-09-23] MEDS ORDERED: INFLUENZA QUAD (6MOS+) 2020-21 VAC 0.5 ML SYR IM ONE (08:00)
[2020-09-23] MEDS: INSULIN LISPRO 100 UNIT/ML 3 ML VIAL SUBCUT SCH ×4 (09:25→21:41)
[2020-09-23] MEDS: CHOLECALCIFEROL (D3) 1,000 UNIT (25 MCG) TABLET PO SCH (09:26)
[2020-09-23] MEDS: ZINC SULFATE 220 MG CAPSULE PO SCH (09:26)
[2020-09-23] MEDS: GUAIFENESIN 600 MG TABLET.SA PO SCH ×2 (09:26→21:41)
[2020-09-23] MEDS: ASCORBIC ACID 500 MG TABLET PO SCH ×2 (09:26→17:42)
[2020-09-23] MEDS: ENOXAPARIN SODIUM INJ 120 MG/0.8 ML DISP.SYRIN SUBCUT SCH ×2 (09:28→21:41)
[2020-09-23] MEDS ORDERED: DEXAMETHASONE SOD PHOS INJ 10 MG/1 ML VIAL IV SCH (10:00)
--- NOTE | 2020-09-23 10:04 | PDOC PROGRESS REPORT ---
Subjective Date:: 09/23/20 Subjective:: LOLI EM is a 40 year old female with history of diabetes mellitus type 2, morbid obesity, who presents to the hospital with complaints of shortness of breath and cough. This has been going on for about a week. Cough is productive of yellowish sputum. She denies any hemoptysis. She admits to body aches which are mild. She also admits to subjective fevers. Shortness of breath was quite bad and she did had some dizziness and actually came to the ER about 4 days ago. At that time patient was tested for COVID-19 and discharged home on isolation. She was later called and told that her COVID-19 test was negative. Given the surprise, she decided to come back to the hospital to find out what was wrong with her. Her symptoms actually have not progressed since then but about the same. However, this time she was noted to be hypoxic at 88% on room air. Chest x-ray still shows bilateral infiltrates. 09/23/2020. No acute events overnight. Patient reporting mild improvement of her symptoms, cough improving, SPO2 WNL on 10 L Oxymizer, afebrile, WBC WNL. Unfortunately patient has tested positive for COVID-19. Denies any nausea or vomiting, having normal bowel movement. Reason For Visit: BILATERAL PNEUMONIA,HYPOXIA,SHORTNESS OF BREATH, Physical Exam Vital Signs: Temp Pulse Resp BP Pulse Ox 97.6 F 80 22 H 98/57 L 95 09/23/20 03:45 09/23/20 07:45 09/23/20 07:45 09/23/20 03:45 09/23/20 08:13 Intake & Output 09/22/20 09/23/20 09/24/20 06:59 06:59 06:59 Intake Total 50 1350 Output Total 700 Balance -650 1350 Weight 119.2 kg 119.2 kg General appearance: PRESENT: no acute distress, well-developed, well-nourished Head exam: PRESENT: atraumatic, normocephalic Neck exam: ABSENT: carotid bruit, JVD, lymphadenopathy, thyromegaly Respiratory exam: PRESENT: crackles - Bibasilar. ABSENT: rales, rhonchi, wheezes Cardiovascular exam: PRESENT: RRR. ABSENT: diastolic murmur, rubs, systolic murmur GI/Abdominal exam: PRESENT: normal bowel sounds, soft. ABSENT: distended, guarding, mass, organolmegaly, rebound, tenderness Neurological exam: PRESENT: alert, awake, oriented to person, oriented to place, oriented to time, oriented to situation, CN II-XII grossly intact. ABSENT: motor sensory deficit Results Laboratory Results: 09/23/20 04:49 09/23/20 04:49 09/23/20 09/23/20 04:49 04:49 WBC 5.4 RBC 4.11 Hgb 12.0 Hct 35.3 L MCV 86 MCH 29.1 MCHC 33.8 RDW 13.0 Plt Count 379 Sodium 135.5 L Potassium 3.7 Chloride 98 Carbon Dioxide 28 Anion Gap 10 BUN 13 Creatinine 0.69 Est GFR ( Amer) > 60 Glucose 187 H Calcium 8.8 Phosphorus 5.5 H Total Bilirubin 0.5 AST 27 Alkaline Phosphatase 84 Total Protein 6.5 Albumin 3.2 L 09/21/20 23:45 Troponin I < 0.012 NT-Pro-B Natriuret Pep 91 Impressions: Chest X-Ray 09/21/20 23:08 IMPRESSION: Worsening bilateral infiltration. copyright 2010 [employer]- All Rights Reserved Assessment and Plan - Diagnosis (1) Acute respiratory failure with hypoxia Is this a current diagnosis for this admission?: Yes Plan: Most likely due to COVID-19 pneumonia. Chest x-ray shows bilateral infiltrates suggestive of atypical pneumonia COVID-19 serology positive. SPO2 WNL on 3 L per Oxymizer. Afebrile. WBC WNL. Does not appear to be in significant respiratory distress. Day 2 IV antibiotics. Day 1 IV azithromycin. Continue empiric IV antibiotics, steroids, duo nebs, supplemental oxygen, flutter valve, incentive spirometry, flutter valve, pulmonary toileting. Pending convalescent plasma transfusion. (2) Costochondritis, acute Is this a current diagnosis for this admission?: Yes Plan: Secondary to pneumonia. NSAIDs as needed. (3) Hyponatremia Is this a current diagnosis for this admission?: Yes Plan: Likely due to COVID-19 pneumonia. Resolved. There is euvolemic. (4) Obesity (BMI 30-39.9) Is this a current diagnosis for this admission?: Yes Plan: BMI 38.8. Diet and lifestyle modification recommended. (5) COVID-19 Is this a current diagnosis for this admission?: Yes Plan: COVID-19 serology positive. Plan as per problem #1. (6) Diabetes Qualifiers: Diabetes mellitus type: type 2 Diabetes mellitus prison insulin use: without prison use Diabetes mellitus complication status: without complication Qualified Code(s): E11.9 - Type 2 diabetes mellitus without complications Is this a current diagnosis for this admission?: Yes Plan: Recently diagnosed. Hemoglobin A1c of 9.8 on last visit. Diabetic diet, sliding scale insulin, basal insulin, prandial insulin, Accu-Chek , hypoglycemia protocol. Resume oral hypoglycemic upon discharge. Diabetic education. - Time Time Spent with patient: 35 or more minutes Anticipated Discharge Disposition: Home, Self Care Anticipated Discharge Timeframe: within 48 hours
[2020-09-23] MEDS ORDERED: AZITHROMYCIN 250 MG TABLET PO ONE (10:30)
[2020-09-23] MEDS: ASPIRIN 81 MG TABLET, ENT COATED PO SCH (11:48)
[2020-09-23] MEDS: DEXAMETHASONE SOD PHOSPHATE INJ 4 MG/1 ML VIAL IV SCH (15:26)
[2020-09-23 15:54] LABS: APPEARANCE,URINE CLEAR; BILIRUBIN,URINE NEGATIVE (NEGATIVE); COLOR,URINE YELLOW; GLUCOSE, URINE 150 mg/dL (NEGATIVE); KETONES,URINE NEGATIVE (NEGATIVE); LEUKOCYTE ESTERASE,URINE NEGATIVE (NEGATIVE); NITRITE,URINE NEGATIVE (NEGATIVE); PROTEIN,URINE NEGATIVE (NEGATIVE); URINE SPECIFIC GRAVITY 1.018
[2020-09-23] MEDS: CEFTRIAXONE 2 GM/D5W RTU 2 GM/50 ML RTUPB IV SCH (21:42)
[2020-09-23] MEDS: AZITHROMYCIN 250 MG in DEXTROSE 5%-WATER 250 ML IV SCH (22:29)
[2020-09-24 05:53] LABS: PARTIAL THROMBOPLASTIN TIME 32.2 SEC (23.5-35.8)
[2020-09-24 05:55] LABS: D-DIMER 3.63 ug/mL (0.00-0.50)
[2020-09-24 06:13] LABS: ALBUMIN 2.9 g/dL (3.5-5.0); ALKALINE PHOSPHATASE 79 U/L (38-126); ANION GAP 8 (5-19); ASPARTATE AMINO TRANSFERASE 25 U/L (14-36); BILIRUBIN,DIRECT 0.2 mg/dL (0.0-0.4); BILIRUBIN,TOTAL 0.5 mg/dL (0.2-1.3); BLOOD UREA NITROGEN 9 mg/dL (7-20); C-REACTIVE PROTEIN 29.1 mg/L (<10.0); CALCIUM 8.7 mg/dL (8.4-10.2); CARBON DIOXIDE 28 mmol/L (22-30); CHLORIDE 99 mmol/L (98-107); GLUCOSE 228 mg/dL (75-110); POTASSIUM 3.7 mmol/L (3.6-5.0); TOTAL PROTEIN 6.1 g/dL (6.3-8.2)
[2020-09-24] MEDS: IPRATROPIUM/ALBUTEROL 0.5-2.5 MG/3 ML AMPUL NEB SCH ×3 (07:55→19:59)
[2020-09-24] MEDS: INSULIN LISPRO 100 UNIT/ML 3 ML VIAL SUBCUT SCH ×4 (09:08→21:29)
[2020-09-24] MEDS: ZINC SULFATE 220 MG CAPSULE PO SCH (09:12)
[2020-09-24] MEDS: GUAIFENESIN 600 MG TABLET.SA PO SCH ×2 (09:12→21:29)
[2020-09-24] MEDS: DEXAMETHASONE SOD PHOSPHATE INJ 4 MG/1 ML VIAL IV SCH (09:12)
[2020-09-24] MEDS: CHOLECALCIFEROL (D3) 1,000 UNIT (25 MCG) TABLET PO SCH (09:12)
[2020-09-24] MEDS: ASPIRIN 81 MG TABLET, ENT COATED PO SCH (09:12)
[2020-09-24] MEDS: ASCORBIC ACID 500 MG TABLET PO SCH ×2 (09:12→17:40)
[2020-09-24] MEDS: ENOXAPARIN SODIUM INJ 120 MG/0.8 ML DISP.SYRIN SUBCUT SCH ×2 (09:13→21:30)
[2020-09-24] MEDS ORDERED: AZITHROMYCIN 250 MG TABLET PO SCH (10:00)
--- NOTE | 2020-09-24 11:14 | PDOC PROGRESS REPORT ---
Subjective Date:: 09/24/20 Subjective:: LOLI EM is a 40 year old female with history of diabetes mellitus type 2, morbid obesity, who presents to the hospital with complaints of shortness of breath and cough. This has been going on for about a week. Cough is productive of yellowish sputum. She denies any hemoptysis. She admits to body aches which are mild. She also admits to subjective fevers. Shortness of breath was quite bad and she did had some dizziness and actually came to the ER about 4 days ago. At that time patient was tested for COVID-19 and discharged home on isolation. She was later called and told that her COVID-19 test was negative. Given the surprise, she decided to come back to the hospital to find out what was wrong with her. Her symptoms actually have not progressed since then but about the same. However, this time she was noted to be hypoxic at 88% on room air. Chest x-ray still shows bilateral infiltrates. 09/23/2020. No acute events overnight. Patient reporting mild improvement of her symptoms, cough improving, SPO2 WNL on 10 L Oxymizer, afebrile, WBC WNL. Unfortunately patient has tested positive for COVID-19. Denies any nausea or vomiting, having normal bowel movement. 09/24/2020. No acute events overnight. Reporting mild improvement of respiratory symptoms, currently on Oxymizer, oxygen demand is trending down, afebrile, denies any fever, chills, nausea, vomiting, diarrhea, constipation or any urinary symptoms. Reason For Visit: BILATERAL PNEUMONIA,HYPOXIA,SHORTNESS OF BREATH, Physical Exam Vital Signs: Temp Pulse Resp BP Pulse Ox 97.6 F 68 20 115/73 96 09/24/20 08:16 09/24/20 07:56 09/24/20 07:56 09/24/20 07:56 09/24/20 07:56 Intake & Output 09/23/20 09/24/20 09/25/20 06:59 06:59 06:59 Intake Total 1350 1260 Balance 1350 1260 Weight 119.2 kg 120.2 kg General appearance: PRESENT: obese, other Head exam: PRESENT: atraumatic, normocephalic Neck exam: ABSENT: carotid bruit, JVD, lymphadenopathy, thyromegaly Respiratory exam: PRESENT: crackles, other. ABSENT: rales, rhonchi, wheezes Cardiovascular exam: PRESENT: RRR. ABSENT: diastolic murmur, rubs, systolic murmur GI/Abdominal exam: PRESENT: normal bowel sounds, soft. ABSENT: distended, guarding, mass, organolmegaly, rebound, tenderness Extremities exam: PRESENT: full ROM. ABSENT: calf tenderness, clubbing, pedal edema Neurological exam: PRESENT: alert, awake, oriented to person, oriented to place, oriented to time, oriented to situation, CN II-XII grossly intact. ABSENT: motor sensory deficit Results Laboratory Results: 09/23/20 04:49 09/24/20 05:28 09/23/20 09/23/20 09/24/20 10:11 15:36 05:28 Sodium 134.9 L Potassium 3.7 Chloride 99 Carbon Dioxide 28 Anion Gap 8 BUN 9 Creatinine 0.59 Est GFR ( Amer) > 60 Glucose 228 H Calcium 8.7 Ferritin 128.00 Total Bilirubin 0.5 AST 25 Alkaline Phosphatase 79 C-Reactive Protein 29.1 H Total Protein 6.1 L Albumin 2.9 L Urine Color YELLOW Urine Appearance CLEAR Urine pH 6.0 Ur Specific Brutus 1.018 Urine Protein NEGATIVE Urine Glucose (UA) 150 H Urine Ketones NEGATIVE Urine Blood NEGATIVE Urine Nitrite NEGATIVE Ur Leukocyte Esterase NEGATIVE Urine WBC (Auto) 2 Urine RBC (Auto) 2 Blood Type O POSITIVE Antibody Screen NEGATIVE 09/21/20 23:45 Troponin I < 0.012 NT-Pro-B Natriuret Pep 91 Impressions: Chest X-Ray 09/21/20 23:08 IMPRESSION: Worsening bilateral infiltration. copyright 2010 [employer]- All Rights Reserved Assessment and Plan - Diagnosis (1) Acute respiratory failure with hypoxia Is this a current diagnosis for this admission?: Yes Plan: Most likely due to COVID-19 pneumonia. Chest x-ray shows bilateral infiltrates suggestive of atypical pneumonia COVID-19 serology positive. SPO2 WNL on 7 L per Oxymizer. Afebrile. WBC WNL. Does not appear to be in significant respiratory distress. Day 3 IV antibiotics. Day 2 IV azithromycin. Continue empiric IV antibiotics, steroids, duo nebs, supplemental oxygen, flutter valve, incentive spirometry, flutter valve, pulmonary toileting. Status post convalescent plasma transfusion. (2) Hyponatremia Is this a current diagnosis for this admission?: Yes Plan: Likely due to COVID-19 pneumonia. Resolved. There is euvolemic. (3) Obesity (BMI 30-39.9) Is this a current diagnosis for this admission?: Yes Plan: BMI 38.8. Diet and lifestyle modification recommended. (4) COVID-19 Is this a current diagnosis for this admission?: Yes Plan: Plan as per #1. (5) Diabetes Is this a current diagnosis for this admission?: Yes Plan: History of uncontrolled diabetes, hemoglobin A1c 9.8. Currently uncontrolled most likely due to steroids. Continue diabetic diet, sliding scale insulin, Accu-Chek, hypoglycemia protocol. Resume home meds upon discharge. - Time Time Spent with patient: 35 or more minutes Medications reviewed and adjusted accordingly: Yes Anticipated Discharge Disposition: Home, Self Care Anticipated Discharge Timeframe: within 72 hours
[2020-09-24] MEDS: CEFTRIAXONE 2 GM/D5W RTU 2 GM/50 ML RTUPB IV SCH (21:30)
[2020-09-24] MEDS: AZITHROMYCIN 250 MG in DEXTROSE 5%-WATER 250 ML IV SCH (22:23)
[2020-09-25 06:41] LABS: ALBUMIN 3.1 g/dL (3.5-5.0); ALKALINE PHOSPHATASE 77 U/L (38-126); ANION GAP 8 (5-19); ASPARTATE AMINO TRANSFERASE 46 U/L (14-36); BILIRUBIN,DIRECT 0.3 mg/dL (0.0-0.4); BILIRUBIN,TOTAL 0.6 mg/dL (0.2-1.3); BLOOD UREA NITROGEN 10 mg/dL (7-20); C-REACTIVE PROTEIN 15.9 mg/L (<10.0); CALCIUM 8.8 mg/dL (8.4-10.2); CARBON DIOXIDE 29 mmol/L (22-30); CHLORIDE 100 mmol/L (98-107); GLUCOSE 138 mg/dL (75-110); POTASSIUM 3.9 mmol/L (3.6-5.0); TOTAL PROTEIN 6.3 g/dL (6.3-8.2)
[2020-09-25] MEDS: IPRATROPIUM/ALBUTEROL 0.5-2.5 MG/3 ML AMPUL NEB SCH ×3 (07:45→19:41)
--- NOTE | 2020-09-25 09:49 | PDOC PROGRESS REPORT ---
Subjective Date:: 09/25/20 Subjective:: LOLI EM is a 40 year old female with history of diabetes mellitus type 2, morbid obesity, who presents to the hospital with complaints of shortness of breath and cough. This has been going on for about a week. Cough is productive of yellowish sputum. She denies any hemoptysis. She admits to body aches which are mild. She also admits to subjective fevers. Shortness of breath was quite bad and she did had some dizziness and actually came to the ER about 4 days ago. At that time patient was tested for COVID-19 and discharged home on isolation. She was later called and told that her COVID-19 test was negative. Given the surprise, she decided to come back to the hospital to find out what was wrong with her. Her symptoms actually have not progressed since then but about the same. However, this time she was noted to be hypoxic at 88% on room air. Chest x-ray still shows bilateral infiltrates. 09/23/2020. No acute events overnight. Patient reporting mild improvement of her symptoms, cough improving, SPO2 WNL on 10 L Oxymizer, afebrile, WBC WNL. Unfortunately patient has tested positive for COVID-19. Denies any nausea or vomiting, having normal bowel movement. 09/24/2020. No acute events overnight. Reporting mild improvement of respiratory symptoms, currently on Oxymizer, oxygen demand is trending down, afebrile, denies any fever, chills, nausea, vomiting, diarrhea, constipation or any urinary symptoms. 09/25/2020. No acute events overnight. Reporting moderate improvement of her symptoms, still dependent on supplemental oxygen, currently on nasal cannula FiO2 of 40 and oxygen flow rate of 5.5 L/min saturating WNL. Denies any fever, chills, nausea, vomiting, diarrhea, constipation or any urinary symptoms. Possible discharge home if she could be weaned off of oxygen today or tomorrow. Reason For Visit: BILATERAL PNEUMONIA,HYPOXIA,SHORTNESS OF BREATH, Physical Exam Vital Signs: Temp Pulse Resp BP Pulse Ox 97.6 F 61 20 110/64 95 09/25/20 08:16 09/25/20 08:58 09/25/20 08:58 09/25/20 08:16 09/25/20 08:58 Intake & Output 09/24/20 09/25/2020 06:59 06:59 06:59 Intake Total 1260 1680 Output Total 1150 Balance 1260 530 Weight 120.2 kg 120 kg General appearance: PRESENT: mild distress, obese, well-developed, well- nourished Head exam: PRESENT: atraumatic, normocephalic Neck exam: ABSENT: carotid bruit, JVD, lymphadenopathy, thyromegaly Respiratory exam: PRESENT: crackles - Right lung base. ABSENT: rales, rhonchi, wheezes Cardiovascular exam: PRESENT: RRR. ABSENT: diastolic murmur, rubs, systolic murmur GI/Abdominal exam: PRESENT: normal bowel sounds, soft. ABSENT: distended, guarding, mass, organolmegaly, rebound, tenderness Extremities exam: PRESENT: full ROM. ABSENT: calf tenderness, clubbing, pedal edema Neurological exam: PRESENT: alert, awake, oriented to person, oriented to place, oriented to time, oriented to situation, CN II-XII grossly intact. ABSENT: mot or sensory deficit Results Laboratory Results: 09/23/20 04:49 09/25/20 05:00 09/25/20 05:00 Sodium 136.9 L Potassium 3.9 Chloride 100 Carbon Dioxide 29 Anion Gap 8 BUN 10 Creatinine 0.67 Est GFR ( Amer) > 60 Glucose 138 H Calcium 8.8 Ferritin 127.00 Total Bilirubin 0.6 AST 46 H Alkaline Phosphatase 77 C-Reactive Protein 15.9 H Total Protein 6.3 Albumin 3.1 L 09/21/20 23:45 Troponin I < 0.012 NT-Pro-B Natriuret Pep 91 Impressions: Chest X-Ray 09/21/20 23:08 IMPRESSION: Worsening bilateral infiltration. copyright 2010 [employer]- All Rights Reserved Assessment and Plan - Diagnosis (1) Acute respiratory failure with hypoxia Is this a current diagnosis for this admission?: Yes Plan: Moderate improvement. Currently on nasal cannula FiO2 of 40%, oxygen flow rate 5.5 saturating WNL. Most likely due to COVID-19 pneumonia. Chest x-ray shows bilateral infiltrates suggestive of atypical pneumonia COVID-19 serology positive. Afebrile. WBC WNL. Does not appear to be in significant respiratory distress. Day 4 IV antibiotics. Day 4 IV azithromycin. Continue empiric IV antibiotics, steroids, duo nebs, supplemental oxygen, flutter valve, incentive spirometry, flutter valve, pulmonary toileting. Status post convalescent plasma transfusion. (2) Hyponatremia Is this a current diagnosis for this admission?: Yes Plan: Likely due to COVID-19 pneumonia. Resolved. There is euvolemic. (3) Obesity (BMI 30-39.9) Is this a current diagnosis for this admission?: Yes Plan: BMI 38.8. Diet and lifestyle modification recommended. (4) COVID-19 Is this a current diagnosis for this admission?: Yes Plan: Plan as per #1. (5) Diabetes Is this a current diagnosis for this admission?: Yes Plan: History of uncontrolled diabetes, hemoglobin A1c 9.8. Currently uncontrolled most likely due to steroids. Continue diabetic diet, sliding scale insulin, Accu-Chek, hypoglycemia protocol. Resume home meds upon discharge. - Time Time Spent with patient: 25-34 minutes Medications reviewed and adjusted accordingly: Yes Anticipated Discharge Disposition: Home, Self Care Anticipated Discharge Timeframe: within 48 hours
[2020-09-25] MEDS: INSULIN LISPRO 100 UNIT/ML 3 ML VIAL SUBCUT SCH ×4 (10:15→21:25)
[2020-09-25] MEDS: ENOXAPARIN SODIUM INJ 120 MG/0.8 ML DISP.SYRIN SUBCUT SCH ×2 (10:54→21:26)
[2020-09-25] MEDS: CHOLECALCIFEROL (D3) 1,000 UNIT (25 MCG) TABLET PO SCH (10:54)
[2020-09-25] MEDS: DEXAMETHASONE SOD PHOSPHATE INJ 4 MG/1 ML VIAL IV SCH (10:54)
[2020-09-25] MEDS: ASCORBIC ACID 500 MG TABLET PO SCH ×2 (10:54→17:12)
[2020-09-25] MEDS: ASPIRIN 81 MG TABLET, ENT COATED PO SCH (10:54)
[2020-09-25] MEDS: GUAIFENESIN 600 MG TABLET.SA PO SCH ×2 (10:54→21:26)
[2020-09-25] MEDS: ZINC SULFATE 220 MG CAPSULE PO SCH (10:54)
[2020-09-25] MEDS: CEFTRIAXONE 2 GM/D5W RTU 2 GM/50 ML RTUPB IV SCH (21:25)
[2020-09-25] MEDS: AZITHROMYCIN 250 MG in DEXTROSE 5%-WATER 250 ML IV SCH (21:32)
[2020-09-26 05:36] LABS: HEMATOCRIT 33.5 % (36.0-47.0); HEMOGLOBIN 11.4 g/dL (12.0-15.5); MEAN CORPUSCULAR HEMOGLOBIN 29.3 pg (27.0-33.4); MEAN CORPUSCULAR VOLUME 86 fl (80-97); PLATELET COUNT 420 10^3/uL (150-450); RED BLOOD COUNT 3.89 10^6/uL (3.72-5.28)
[2020-09-26 05:47] LABS: PARTIAL THROMBOPLASTIN TIME 33.2 SEC (23.5-35.8)
[2020-09-26 05:49] LABS: D-DIMER 3.77 ug/mL (0.00-0.50)
[2020-09-26 06:12] LABS: ALKALINE PHOSPHATASE 74 U/L (38-126); ANION GAP 6 (5-19); ASPARTATE AMINO TRANSFERASE 35 U/L (14-36); BILIRUBIN,DIRECT 0.3 mg/dL (0.0-0.4); BILIRUBIN,TOTAL 0.6 mg/dL (0.2-1.3); BLOOD UREA NITROGEN 13 mg/dL (7-20); C-REACTIVE PROTEIN 11.4 mg/L (<10.0); CALCIUM 8.7 mg/dL (8.4-10.2); CARBON DIOXIDE 30 mmol/L (22-30); CHLORIDE 102 mmol/L (98-107); GLUCOSE 154 mg/dL (75-110); TOTAL PROTEIN 6.2 g/dL (6.3-8.2)
[2020-09-26] MEDS: IPRATROPIUM/ALBUTEROL 0.5-2.5 MG/3 ML AMPUL NEB SCH ×3 (07:59→20:11)
[2020-09-26] MEDS: INSULIN LISPRO 100 UNIT/ML 3 ML VIAL SUBCUT SCH ×4 (08:21→22:22)
[2020-09-26] MEDS: DEXAMETHASONE SOD PHOSPHATE INJ 4 MG/1 ML VIAL IV SCH (10:54)
[2020-09-26] MEDS: CHOLECALCIFEROL (D3) 1,000 UNIT (25 MCG) TABLET PO SCH (10:56)
[2020-09-26] MEDS: GUAIFENESIN 600 MG TABLET.SA PO SCH ×2 (10:56→22:21)
[2020-09-26] MEDS: ASPIRIN 81 MG TABLET, ENT COATED PO SCH (10:56)
[2020-09-26] MEDS: ASCORBIC ACID 500 MG TABLET PO SCH ×2 (10:56→17:44)
[2020-09-26] MEDS: ENOXAPARIN SODIUM INJ 120 MG/0.8 ML DISP.SYRIN SUBCUT SCH ×2 (10:57→22:22)
[2020-09-26] MEDS: ZINC SULFATE 220 MG CAPSULE PO SCH (10:57)
--- NOTE | 2020-09-26 11:59 | PDOC PROGRESS REPORT ---
Subjective Date:: 09/26/20 Subjective:: LOLI EM is a 40 year old female with history of diabetes mellitus type 2, morbid obesity, who presents to the hospital with complaints of shortness of breath and cough. This has been going on for about a week. Cough is productive of yellowish sputum. She denies any hemoptysis. She admits to body aches which are mild. She also admits to subjective fevers. Shortness of breath was quite bad and she did had some dizziness and actually came to the ER about 4 days ago. At that time patient was tested for COVID-19 and discharged home on isolation. She was later called and told that her COVID-19 test was negative. Given the surprise, she decided to come back to the hospital to find out what was wrong with her. Her symptoms actually have not progressed since then but about the same. However, this time she was noted to be hypoxic at 88% on room air. Chest x-ray still shows bilateral infiltrates. 09/23/2020. No acute events overnight. Patient reporting mild improvement of her symptoms, cough improving, SPO2 WNL on 10 L Oxymizer, afebrile, WBC WNL. Unfortunately patient has tested positive for COVID-19. Denies any nausea or vomiting, having normal bowel movement. 09/24/2020. No acute events overnight. Reporting mild improvement of respiratory symptoms, currently on Oxymizer, oxygen demand is trending down, afebrile, denies any fever, chills, nausea, vomiting, diarrhea, constipation or any urinary symptoms. 09/25/2020. No acute events overnight. Reporting moderate improvement of her symptoms, still dependent on supplemental oxygen, currently on nasal cannula FiO2 of 40 and oxygen flow rate of 5.5 L/min saturating WNL. Denies any fever, chills, nausea, vomiting, diarrhea, constipation or any urinary symptoms. Possible discharge home if she could be weaned off of oxygen today or tomorrow. 09/26/2020. No acute events overnight. Patient comfortably sitting up in distress, unfortunately patient is still on 4 L nasal cannula, desaturates on weaning off, patient could possibly be going home if home oxygen could very arrange, patient denies any fever, chills, nausea, vomiting. Reason For Visit: BILATERAL PNEUMONIA,HYPOXIA,SHORTNESS OF BREATH, Physical Exam Vital Signs: Temp Pulse Resp BP Pulse Ox 97.5 F 71 18 119/74 98 09/26/20 08:17 09/26/20 08:17 09/26/20 08:17 09/26/20 08:17 09/26/20 08:17 Intake & Output 09/25/20 09/26/20 09/27/20 06:59 06:59 06:59 Intake Total 1680 2070 Output Total 1150 2075 Balance 530 -5 Weight 120 kg 119 kg General appearance: PRESENT: no acute distress, obese, well-developed, well- nourished Head exam: PRESENT: atraumatic, normocephalic Respiratory exam: PRESENT: clear to auscultation janice. ABSENT: rales, rhonchi, wheezes Pulses: PRESENT: normal dorsalis pedis pul GI/Abdominal exam: PRESENT: normal bowel sounds, soft. ABSENT: distended, guarding, mass, organolmegaly, rebound, tenderness Neurological exam: PRESENT: alert, awake, oriented to person, oriented to place, oriented to time, oriented to situation, CN II-XII grossly intact. ABSENT: motor sensory deficit Skin exam: PRESENT: dry, intact, warm. ABSENT: cyanosis, rash Results Laboratory Results: 09/26/20 04:31 09/26/20 04:31 09/26/20 09/26/20 04:31 04:31 WBC 6.0 RBC 3.89 Hgb 11.4 L Hct 33.5 L MCV 86 MCH 29.3 MCHC 34.0 RDW 13.0 Plt Count 420 Sodium 137.5 Potassium 4.0 Chloride 102 Carbon Dioxide 30 Anion Gap 6 BUN 13 Creatinine 0.70 Est GFR ( Amer) > 60 Glucose 154 H Calcium 8.7 Ferritin 115.00 Total Bilirubin 0.6 AST 35 Alkaline Phosphatase 74 C-Reactive Protein 11.4 H Total Protein 6.2 L Albumin 3.0 L 09/22/20 17:42 Sputum Gram Stain - Final 09/22/20 17:42 Sputum Sputum Culture - Final Staphylococcus Aureus C.albicans/C.dubliniensis Normal Lynnette 09/23/20 15:36 Clean Catch Midstream Urine Culture - Final NO GROWTH 2 DAYS 09/21/20 23:45 Troponin I < 0.012 NT-Pro-B Natriuret Pep 91 Impressions: Chest X-Ray 09/21/20 23:08 IMPRESSION: Worsening bilateral infiltration. copyright 2010 [employer]- All Rights Reserved Assessment and Plan - Diagnosis (1) Acute respiratory failure with hypoxia Is this a current diagnosis for this admission?: Yes Plan: Moderate improvement. Currently on nasal cannula FiO2 of 40%, oxygen flow rate 4 saturating WNL. Most likely due to COVID-19 pneumonia. Chest x-ray shows bilateral infiltrates suggestive of atypical pneumonia COVID-19 serology positive. Afebrile. WBC WNL. Does not appear to be in significant respiratory distress. Day 5 IV antibiotics. Day 5 IV azithromycin. Day 5 IV ceftriaxone. Continue empiric IV antibiotics, steroids, duo nebs, supplemental oxygen, flutter valve, incentive spirometry, flutter valve, pulmonary toileting. Status post convalescent plasma transfusion. (2) Hyponatremia Is this a current diagnosis for this admission?: Yes Plan: Likely due to COVID-19 pneumonia. Resolved. There is euvolemic. (3) Obesity (BMI 30-39.9) Is this a current diagnosis for this admission?: Yes Plan: BMI 38.8. Diet and lifestyle modification recommended. (4) COVID-19 Is this a current diagnosis for this admission?: Yes Plan: Plan as per #1. (5) Diabetes Is this a current diagnosis for this admission?: Yes Plan: History of uncontrolled diabetes, hemoglobin A1c 9.8. Currently uncontrolled most likely due to steroids. Continue diabetic diet, sliding scale insulin, Accu-Chek, hypoglycemia protocol. Resume home meds upon discharge. - Time Time Spent with patient: 25-34 minutes Anticipated Discharge Disposition: Home, Self Care Anticipated Discharge Timeframe: within 24 hours
[2020-09-26 14:00] LABS: APPEARANCE,URINE CLOUDY; BILIRUBIN,URINE NEGATIVE (NEGATIVE); COLOR,URINE AMBER; GLUCOSE, URINE NEGATIVE (NEGATIVE); KETONES,URINE TRACE mg/dL (NEGATIVE); LEUKOCYTE ESTERASE,URINE NEGATIVE (NEGATIVE); NITRITE,URINE NEGATIVE (NEGATIVE); PROTEIN,URINE 30 mg/dL (NEGATIVE); URINE SPECIFIC GRAVITY 1.032; UROBILINOGEN,URINE NEGATIVE mg/dL (<2.0)
[2020-09-26 18:08] LABS: APPEARANCE,URINE CLEAR; BILIRUBIN,URINE NEGATIVE (NEGATIVE); COLOR,URINE STRAW; GLUCOSE, URINE >=500 mg/dL (NEGATIVE); KETONES,URINE NEGATIVE (NEGATIVE); LEUKOCYTE ESTERASE,URINE NEGATIVE (NEGATIVE); NITRITE,URINE NEGATIVE (NEGATIVE); PROTEIN,URINE NEGATIVE (NEGATIVE); URINE SPECIFIC GRAVITY 1.017; UROBILINOGEN,URINE NEGATIVE mg/dL (<2.0)
[2020-09-26] MEDS: CEFTRIAXONE 2 GM/D5W RTU 2 GM/50 ML RTUPB IV SCH (22:21)
[2020-09-26] MEDS: AZITHROMYCIN 250 MG in DEXTROSE 5%-WATER 250 ML IV SCH (22:52)
[2020-09-27 05:45] LABS: ALBUMIN 3.2 g/dL (3.5-5.0); ALKALINE PHOSPHATASE 74 U/L (38-126); ANION GAP 7 (5-19); ASPARTATE AMINO TRANSFERASE 32 U/L (14-36); BILIRUBIN,DIRECT 0.3 mg/dL (0.0-0.4); BILIRUBIN,TOTAL 0.6 mg/dL (0.2-1.3); BLOOD UREA NITROGEN 15 mg/dL (7-20); C-REACTIVE PROTEIN 6.5 mg/L (<10.0); CALCIUM 9.2 mg/dL (8.4-10.2); CARBON DIOXIDE 27 mmol/L (22-30); CHLORIDE 103 mmol/L (98-107); GLUCOSE 167 mg/dL (75-110); POTASSIUM 4.3 mmol/L (3.6-5.0); TOTAL PROTEIN 6.4 g/dL (6.3-8.2)
[2020-09-27] MEDS: IPRATROPIUM/ALBUTEROL 0.5-2.5 MG/3 ML AMPUL NEB SCH ×3 (08:01→20:06)
[2020-09-27] MEDS: CHOLECALCIFEROL (D3) 1,000 UNIT (25 MCG) TABLET PO SCH (09:15)
[2020-09-27] MEDS: ASPIRIN 81 MG TABLET, ENT COATED PO SCH (09:15)
[2020-09-27] MEDS: ASCORBIC ACID 500 MG TABLET PO SCH ×2 (09:15→17:17)
[2020-09-27] MEDS: ENOXAPARIN SODIUM INJ 120 MG/0.8 ML DISP.SYRIN SUBCUT SCH (09:15)
[2020-09-27] MEDS: GUAIFENESIN 600 MG TABLET.SA PO SCH ×2 (09:15→22:29)
[2020-09-27] MEDS: ZINC SULFATE 220 MG CAPSULE PO SCH (09:15)
[2020-09-27] MEDS: DEXAMETHASONE SOD PHOSPHATE INJ 4 MG/1 ML VIAL IV SCH (09:15)
[2020-09-27] MEDS: INSULIN LISPRO 100 UNIT/ML 3 ML VIAL SUBCUT SCH ×4 (09:16→22:29)
[2020-09-27] MEDS ORDERED: REMDESIVIR 200 MG in NORMAL SALINE 250 ML IV ONE (11:00)
--- NOTE | 2020-09-27 13:56 | RADIOLOGY REPORT (SQ) ---
EXAM DESCRIPTION: CTA CHEST IMAGES COMPLETED DATE/TIME: 09/27/2020 1:21 pm REASON FOR STUDY: HIGH DDIMER, COVID. R/O PE COMPARISON: None. TECHNIQUE: CT scan of the chest performed using helical scanning technique with dynamic intravenous contrast injection. Images reviewed with lung, soft tissue and bone windows. Reconstructed coronal and sagittal MPR images reviewed. Additional 3 dimensional post-processing performed to develop Maximal Intensity Projection images (CO P). All images stored on PACS. All CT scanners at this facility use dose modulation, iterative reconstruction, and/or weight based d osing when appropriate to reduce radiation dose to as low as reasonably achievable (ALARA). [facility]: Dose Right [facility]: CareDose [facility]: Dose Right [facility]: Teradose 4D [facility]: [place] CONTRAST TYPE AND DOSE: contrast/concentration: Isovue 350.00 mmol/ml; Total Contrast Delivered: 65. 0 ml; Total Saline Delivered: 65.0 ml RENAL FUNCTION: GFR > 60. RADIATION DOSE: CT Rad equipment meets quality standard of care and radiation dose reduction techniq ues were employed. CTDIvol: 15.5 - 33.8 mGy. DLP: 614 mGy-cm. . LIMITATIONS: Timing of contrast FINDINGS: LUNGS AND PLEURA: Diffuse bilateral ground-glass opacities consistent with clinical histor y. No cavitation. No effusion. AORTA AND GREAT VESSELS: No aneurysm. No dissection. HEART: No pericardial effusion. PULMONARY ARTERIES: Filling defects in the 1st and 2nd degree branches of both lower lobe pulmonary a rteries. Example series 3, image 48. No central PE. HILAR AND MEDIASTINAL STRUCTURES: No identified masses or abnormal nodes. HARDWARE: None in the chest. UPPER ABDOMEN: No significant findings. Limited exam. THYROID AND OTHER SOFT TISSUES: No masses. No adenopathy. BONES: No acute or significant finding. 3D MIPS: Confirm above findings. OTHER: No other significant finding. IMPRESSION: 1. Positive for pulmonary emboli in branches of the lower lobe pulmonary arteries. No central emboli . 2. Viral pneumonia consistent with clinical history. COMMENT: Quality ID # [id number]: Final reports with documentation of one or more dose reduction techniques (e.g., Automated exposure control, adjustment of the mA and/or kV according to patient size, use of iterative reconstruction technique) TECHNICAL DOCUMENTATION: JOB ID: [id number] [employer]- All Rights Reserved Reading location - IP/workstation name: [email or web address]
--- NOTE | 2020-09-27 14:56 | PDOC PROGRESS REPORT ---
Subjective Date:: 09/27/20 Reason For Visit: BILATERAL PNEUMONIA,HYPOXIA,SHORTNESS OF BREATH, Physical Exam Vital Signs: Temp Pulse Resp BP Pulse Ox 97.7 F 76 16 111/77 92 09/27/20 11:12 09/27/20 14:06 09/27/20 14:06 09/27/20 11:12 09/27/20 14:06 Intake & Output 09/26/20 09/27/20 09/28/20 06:59 06:59 06:59 Intake Total 2069 1260 120 Output Total 2074 1650 200 Balance -5 -390 -80 Weight 119 kg 118.1 kg 118.1 kg General appearance: PRESENT: no acute distress, cooperative Neck exam: ABSENT: JVD Respiratory exam: PRESENT: crackles, symmetrical, unlabored. ABSENT: tachypnea, wheezes Cardiovascular exam: PRESENT: RRR, +S1, +S2. ABSENT: tachycardia GI/Abdominal exam: PRESENT: soft. ABSENT: rebound, rigid, tenderness Neurological exam: PRESENT: alert, awake, oriented to person, oriented to place, oriented to time Results Laboratory Results: 09/26/20 04:31 09/27/20 04:47 09/26/20 09/27/20 17:48 04:47 Sodium 136.5 L Potassium 4.3 Chloride 103 Carbon Dioxide 27 Anion Gap 7 BUN 15 Creatinine 0.66 Est GFR ( Amer) > 60 Glucose 167 H Calcium 9.2 Ferritin 109.00 Total Bilirubin 0.6 AST 32 Alkaline Phosphatase 74 C-Reactive Protein 6.5 Total Protein 6.4 Albumin 3.2 L Urine Color STRAW Urine Appearance CLEAR Urine pH 7.0 Ur Specific [place] 1.017 Urine Protein NEGATIVE Urine Glucose (UA) >=500 H Urine Ketones NEGATIVE Urine Blood NEGATIVE Urine Nitrite NEGATIVE Ur Leukocyte Esterase NEGATIVE Urine WBC (Auto) 1 Urine RBC (Auto) 0 09/22/20 01:16 Blood Blood Culture - Final NO GROWTH IN 5 DAYS 09/21/20 23:45 Blood Blood Culture - Final NO GROWTH IN 5 DAYS 09/22/20 17:42 Sputum Gram Stain - Final 09/22/20 17:42 Sputum Sputum Culture - Final Staphylococcus Aureus C.albicans/C.dubliniensis Normal Lynnette 09/21/20 23:45 Troponin I < 0.012 NT-Pro-B Natriuret Pep 91 Impressions: Chest X-Ray 09/21/20 23:08 IMPRESSION: Worsening bilateral infiltration. copyright 2011 [employer]- All Rights Reserved Chest/Abdomen CTA 09/27/20 00:00 IMPRESSION: 1. Positive for pulmonary emboli in branches of the lower lobe pulmonary arteries. No central emboli. 2. Viral pneumonia consistent with clinical history. Assessment and Plan - Diagnosis (1) Pneumonia due to COVID-19 virus Is this a current diagnosis for this admission?: Yes Plan: Dexamethasone day 5 Ceftriaxone day 6/7 for MSSA pneumonia as well Start remdesivir as patient is still quite hypoxic requiring 4 L nasal cannula. (2) Bilateral pulmonary embolism Is this a current diagnosis for this admission?: Yes Plan: CTA chest obtained showing bilateral PEs in the lower lobes. Associated with COVID-19. Continue Lovenox. We will switch to Xarelto or Eliquis tomorrow (3) Acute respiratory failure with hypoxia Is this a current diagnosis for this admission?: Yes Plan: Secondary to COVID-19 pneumonia plus PEs. Still on 4 L nasal cannula today with SPO2 in the low to mid 90s. We will try to de-escalate as tolerated. (4) Hyponatremia Is this a current diagnosis for this admission?: Yes (5) Costochondritis, acute Is this a current diagnosis for this admission?: Yes (6) Diabetes Qualifiers: Diabetes mellitus type: type 2 Diabetes mellitus meterman insulin use: without meterman use Diabetes mellitus complication status: without complication Qualified Code(s): E11.9 - Type 2 diabetes mellitus without complications Is this a current diagnosis for this admission?: Yes (7) Obesity (BMI 30-39.9) Is this a current diagnosis for this admission?: Yes - Time Time Spent with patient: 15-24 minutes Anticipated Discharge Disposition: Home, Self Care Anticipated Discharge Timeframe: within 72 hours
[2020-09-27] MEDS: APIXABAN 5 MG TABLET PO SCH (17:17)
[2020-09-27] MEDS: CEFTRIAXONE 2 GM/D5W RTU 2 GM/50 ML RTUPB IV SCH (22:29)
[2020-09-28 05:16] LABS: HEMATOCRIT 35.5 % (36.0-47.0); MEAN CORPUSCULAR HEMOGLOBIN 29.1 pg (27.0-33.4); MEAN CORPUSCULAR HGB CONC 33.7 g/dL (32.0-36.0); MEAN CORPUSCULAR VOLUME 86 fl (80-97); PLATELET COUNT 417 10^3/uL (150-450); RED BLOOD COUNT 4.12 10^6/uL (3.72-5.28); RED CELL DISTRIBUTION WIDTH 13.1 % (11.5-14.0)
[2020-09-28 05:20] LABS: PARTIAL THROMBOPLASTIN TIME 30.2 SEC (23.5-35.8)
[2020-09-28 05:22] LABS: D-DIMER 3.55 ug/mL (0.00-0.50)
[2020-09-28 05:36] LABS: ALBUMIN 3.4 g/dL (3.5-5.0); ALKALINE PHOSPHATASE 70 U/L (38-126); ANION GAP 10 (5-19); ASPARTATE AMINO TRANSFERASE 30 U/L (14-36); BILIRUBIN,DIRECT 0.2 mg/dL (0.0-0.4); BILIRUBIN,TOTAL 0.6 mg/dL (0.2-1.3); BLOOD UREA NITROGEN 14 mg/dL (7-20); C-REACTIVE PROTEIN 10.4 mg/L (<10.0); CALCIUM 9.3 mg/dL (8.4-10.2); CARBON DIOXIDE 26 mmol/L (22-30); CHLORIDE 102 mmol/L (98-107); GLUCOSE 140 mg/dL (75-110); POTASSIUM 4.4 mmol/L (3.6-5.0); TOTAL PROTEIN 6.7 g/dL (6.3-8.2)
[2020-09-28] MEDS: IPRATROPIUM/ALBUTEROL 0.5-2.5 MG/3 ML AMPUL NEB SCH ×3 (08:00→20:18)
[2020-09-28] MEDS: INSULIN LISPRO 100 UNIT/ML 3 ML VIAL SUBCUT SCH ×4 (09:00→21:38)
[2020-09-28] MEDS: DEXAMETHASONE SOD PHOSPHATE INJ 4 MG/1 ML VIAL IV SCH (10:16)
[2020-09-28] MEDS: ASPIRIN 81 MG TABLET, ENT COATED PO SCH (10:16)
[2020-09-28] MEDS: ASCORBIC ACID 500 MG TABLET PO SCH ×2 (10:16→17:00)
[2020-09-28] MEDS: GUAIFENESIN 600 MG TABLET.SA PO SCH ×2 (10:16→21:38)
[2020-09-28] MEDS: CHOLECALCIFEROL (D3) 1,000 UNIT (25 MCG) TABLET PO SCH (10:16)
[2020-09-28] MEDS: APIXABAN 5 MG TABLET PO SCH ×2 (10:16→17:00)
[2020-09-28] MEDS: REMDESIVIR 100 MG in NORMAL SALINE 250 ML IV SCH (10:17)
[2020-09-28] MEDS: ZINC SULFATE 220 MG CAPSULE PO SCH (10:17)
--- NOTE | 2020-09-28 13:07 | PDOC PROGRESS REPORT ---
Subjective Date:: 09/28/20 Subjective:: Patient is doing okay. She keeps on wanting to go home to take care of her kids . He gets short of breath when she ambulates but seems comfortable at rest. She often ends up taking off her nasal cannula. I have encouraged her to keep her nasal cannula on while in the hospital and to monitor her oxygen on the continuous pulse ox. Reason For Visit: BILATERAL PNEUMONIA,HYPOXIA,SHORTNESS OF BREATH, Physical Exam Vital Signs: Temp Pulse Resp BP Pulse Ox 97.6 F 73 16 117/76 90 L 09/28/20 10:00 09/28/20 08:00 09/28/20 08:00 09/28/20 07:15 09/28/20 08:00 Intake & Output 09/27/20 09/28/20 09/29/20 06:59 06:59 06:59 Intake Total 1260 1260 Output Total 1650 1900 Balance -390 -640 Weight 118.1 kg 118 kg General appearance: PRESENT: no acute distress, cooperative Neck exam: ABSENT: JVD Respiratory exam: PRESENT: clear to auscultation janice, symmetrical, unlabored. ABSENT: tachypnea, wheezes Cardiovascular exam: PRESENT: RRR, +S1, +S2. ABSENT: tachycardia GI/Abdominal exam: PRESENT: soft. ABSENT: rebound, rigid, tenderness Neurological exam: PRESENT: alert, awake, oriented to person, oriented to place, oriented to time Results Laboratory Results: 09/28/20 04:26 09/28/20 04:26 09/28/20 09/28/20 04:26 04:26 WBC 6.0 RBC 4.12 Hgb 12.0 Hct 35.5 L MCV 86 MCH 29.1 MCHC 33.7 RDW 13.1 Plt Count 417 Sodium 137.7 Potassium 4.4 Chloride 102 Carbon Dioxide 26 Anion Gap 10 BUN 14 Creatinine 0.67 Est GFR ( Amer) > 60 Glucose 140 H Calcium 9.3 Ferritin 106.00 Total Bilirubin 0.6 AST 30 Alkaline Phosphatase 70 C-Reactive Protein 10.4 H Total Protein 6.7 Albumin 3.4 L 09/21/20 23:45 Troponin I < 0.012 NT-Pro-B Natriuret Pep 91 Impressions: Chest X-Ray 09/21/20 23:08 IMPRESSION: Worsening bilateral infiltration. copyright 2011 [employer]- All Rights Reserved Chest/Abdomen CTA 09/27/20 00:00 IMPRESSION: 1. Positive for pulmonary emboli in branches of the lower lobe pulmonary arteries. No central emboli. 2. Viral pneumonia consistent with clinical history. Assessment and Plan - Diagnosis (1) Pneumonia due to COVID-19 virus Is this a current diagnosis for this admission?: Yes Plan: Dexamethasone day 6 Ceftriaxone day / for MSSA pneumonia as well Remdesivir day 2 (2) Bilateral pulmonary embolism Is this a current diagnosis for this admission?: Yes Plan: CTA chest obtained showing bilateral PEs in the lower lobes. Associated with COVID-19. Transitioned to Eliquis yesterday. (3) Acute respiratory failure with hypoxia Is this a current diagnosis for this admission?: Yes Plan: Secondary to COVID-19 pneumonia plus PEs. Down to 3 L today. We will try to wean patient's nasal cannula as tolerated. Her goal SPO2 is over 90%. (4) Hyponatremia Is this a current diagnosis for this admission?: Yes (5) Costochondritis, acute Is this a current diagnosis for this admission?: Yes (6) Diabetes Qualifiers: Diabetes mellitus type: type 2 Diabetes mellitus superintendent container terminal insulin use: without penitentiary use Diabetes mellitus complication status: without complication Qualified Code(s): E11.9 - Type 2 diabetes mellitus without complications Is this a current diagnosis for this admission?: Yes (7) Obesity (BMI 30-39.9) Is this a current diagnosis for this admission?: Yes - Time Time Spent with patient: 15-24 minutes Anticipated Discharge Disposition: Home, Self Care Anticipated Discharge Timeframe: within 72 hours
[2020-09-28 14:54] LABS: APPEARANCE,URINE CLEAR; BILIRUBIN,URINE NEGATIVE (NEGATIVE); COLOR,URINE YELLOW; GLUCOSE, URINE >=500 mg/dL (NEGATIVE); KETONES,URINE NEGATIVE (NEGATIVE); LEUKOCYTE ESTERASE,URINE NEGATIVE (NEGATIVE); NITRITE,URINE NEGATIVE (NEGATIVE); PROTEIN,URINE NEGATIVE (NEGATIVE); UROBILINOGEN,URINE NEGATIVE mg/dL (<2.0)
[2020-09-28] MEDS: CEFTRIAXONE 2 GM/D5W RTU 2 GM/50 ML RTUPB IV SCH (21:38)
[2020-09-29 05:42] LABS: ALBUMIN 3.7 g/dL (3.5-5.0); ALKALINE PHOSPHATASE 76 U/L (38-126); ANION GAP 12 (5-19); ASPARTATE AMINO TRANSFERASE 32 U/L (14-36); BILIRUBIN,DIRECT 0.3 mg/dL (0.0-0.4); BILIRUBIN,TOTAL 0.7 mg/dL (0.2-1.3); BLOOD UREA NITROGEN 17 mg/dL (7-20); C-REACTIVE PROTEIN 11.2 mg/L (<10.0); CALCIUM 9.7 mg/dL (8.4-10.2); CARBON DIOXIDE 25 mmol/L (22-30); CHLORIDE 102 mmol/L (98-107); GLUCOSE 162 mg/dL (75-110); POTASSIUM 4.5 mmol/L (3.6-5.0); TOTAL PROTEIN 7.2 g/dL (6.3-8.2)
[2020-09-29] MEDS: IPRATROPIUM/ALBUTEROL 0.5-2.5 MG/3 ML AMPUL NEB SCH ×3 (07:48→19:57)
[2020-09-29] MEDS: INSULIN LISPRO 100 UNIT/ML 3 ML VIAL SUBCUT SCH ×4 (07:58→22:17)
[2020-09-29] MEDS: ZINC SULFATE 220 MG CAPSULE PO SCH (09:52)
[2020-09-29] MEDS: ASCORBIC ACID 500 MG TABLET PO SCH ×2 (09:52→17:05)
[2020-09-29] MEDS: ASPIRIN 81 MG TABLET, ENT COATED PO SCH (09:52)
[2020-09-29] MEDS: CHOLECALCIFEROL (D3) 1,000 UNIT (25 MCG) TABLET PO SCH (09:52)
[2020-09-29] MEDS: GUAIFENESIN 600 MG TABLET.SA PO SCH ×2 (09:52→22:14)
[2020-09-29] MEDS: APIXABAN 5 MG TABLET PO SCH ×2 (09:52→17:05)
[2020-09-29] MEDS: DEXAMETHASONE SOD PHOSPHATE INJ 4 MG/1 ML VIAL IV SCH (09:52)
[2020-09-29] MEDS: REMDESIVIR 100 MG in NORMAL SALINE 250 ML IV SCH (10:51)
--- NOTE | 2020-09-29 12:14 | PDOC PROGRESS REPORT ---
Subjective Date:: 09/29/20 Subjective:: Patient feels well. She is eager to go home. She very often takes off her nasa l cannula and desaturates to about 87 to 89%. As she has been noncompliant with the nasal cannula, I have at least instructed her to monitor her pulse oximeter very frequently and to put her oxygen back on if she starts to desaturate below 88%. Reason For Visit: BILATERAL PNEUMONIA,HYPOXIA,SHORTNESS OF BREATH, Physical Exam Vital Signs: Temp Pulse Resp BP Pulse Ox 97.3 F 79 16 100/60 89 L 09/29/20 08:04 09/29/20 07:48 09/29/20 07:48 09/29/20 07:47 09/29/20 07:48 Intake & Output 09/28/20 09/29/20 09/30/20 06:59 06:59 06:59 Intake Total 1260 1550 Output Total 1900 900 Balance -640 650 Weight 118 kg 115.9 kg General appearance: PRESENT: no acute distress, cooperative Neck exam: ABSENT: JVD Respiratory exam: PRESENT: crackles - Mild basilar, symmetrical, unlabored. ABSENT: accessory muscle use, tachypnea, wheezes Cardiovascular exam: PRESENT: RRR, +S1, +S2. ABSENT: tachycardia GI/Abdominal exam: PRESENT: soft. ABSENT: tenderness Neurological exam: PRESENT: alert, awake Results Laboratory Results: 09/28/20 04:26 09/29/20 04:24 09/28/20 09/29/20 14:33 04:24 Sodium 138.5 Potassium 4.5 Chloride 102 Carbon Dioxide 25 Anion Gap 12 BUN 17 Creatinine 0.73 Est GFR ( Amer) > 60 Glucose 162 H Calcium 9.7 Total Bilirubin 0.7 AST 32 Alkaline Phosphatase 76 C-Reactive Protein 11.2 H Total Protein 7.2 Albumin 3.7 Urine Color YELLOW Urine Appearance CLEAR Urine pH 6.0 Ur Specific [place] 1.020 Urine Protein NEGATIVE Urine Glucose (UA) >=500 H Urine Ketones NEGATIVE Urine Blood NEGATIVE Urine Nitrite NEGATIVE Ur Leukocyte Esterase NEGATIVE Urine WBC (Auto) 0 09/21/20 23:45 Troponin I < 0.012 NT-Pro-B Natriuret Pep 91 Impressions: Chest X-Ray 09/21/20 23:08 IMPRESSION: Worsening bilateral infiltration. copyright 2011 [employer]- All Rights Reserved Chest/Abdomen CTA 09/27/20 00:00 IMPRESSION: 1. Positive for pulmonary emboli in branches of the lower lobe pulmonary arteries. No central emboli. 2. Viral pneumonia consistent with clinical history. Assessment and Plan - Diagnosis (1) Pneumonia due to COVID-19 virus Is this a current diagnosis for this admission?: Yes Plan: Dexamethasone day 7 Ceftriaxone day 7/7 for MSSA pneumonia as well Remdesivir day 3 (2) Bilateral pulmonary embolism Is this a current diagnosis for this admission?: Yes Plan: CTA chest obtained showing bilateral PEs in the lower lobes. Associated with COVID-19. C/w Eliquis yesterday. (3) Acute respiratory failure with hypoxia Is this a current diagnosis for this admission?: Yes Plan: Secondary to COVID-19 pneumonia plus PEs. Not compliant with her nasal cannula. When she is on 2 L and saturation is over 90% but when she goes on room air it hangs around between 87 to 90% Continue treatment for COVID-19. 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
[2020-09-30] MEDS: IPRATROPIUM/ALBUTEROL 0.5-2.5 MG/3 ML AMPUL NEB SCH ×3 (07:48→19:51)
[2020-09-30] MEDS: METFORMIN HCL 500 MG TABLET PO SCH (08:04)
[2020-09-30] MEDS: INSULIN LISPRO 100 UNIT/ML 3 ML VIAL SUBCUT SCH ×4 (08:05→21:42)
[2020-09-30] MEDS: GUAIFENESIN 600 MG TABLET.SA PO SCH ×2 (09:38→21:42)
[2020-09-30] MEDS: ZINC SULFATE 220 MG CAPSULE PO SCH (09:38)
[2020-09-30] MEDS: CHOLECALCIFEROL (D3) 1,000 UNIT (25 MCG) TABLET PO SCH (09:38)
[2020-09-30] MEDS: ASCORBIC ACID 500 MG TABLET PO SCH ×2 (09:38→17:05)
[2020-09-30] MEDS: ASPIRIN 81 MG TABLET, ENT COATED PO SCH (09:38)
[2020-09-30] MEDS: APIXABAN 5 MG TABLET PO SCH ×2 (09:38→17:05)
[2020-09-30] MEDS: DEXAMETHASONE SOD PHOSPHATE INJ 4 MG/1 ML VIAL IV SCH (09:38)
--- NOTE | 2020-09-30 09:39 | PDOC PROGRESS REPORT ---
Subjective Date:: 09/30/20 Subjective:: Patient feels well. She states that she is not really short of breath at this p oint. She still notably hypoxic and takes of her nasal cannula very frequently. Oxygen saturations seems to be in the 88 to 90% when I see her on room air. We will ambulate her today. She is still eager to go home. Reason For Visit: BILATERAL PNEUMONIA,HYPOXIA,SHORTNESS OF BREATH, Physical Exam Vital Signs: Temp Pulse Resp BP Pulse Ox 98.5 F 111 H 16 88/54 L 90 L 09/30/20 08:47 09/30/20 07:48 09/30/20 07:48 09/30/20 04:30 09/30/20 07:48 Intake & Output 09/29/20 09/30/20 10/01/20 06:59 06:59 06:59 Intake Total 1550 1080 Output Total 900 Balance 650 1080 Weight 115.9 kg 114.7 kg General appearance: PRESENT: no acute distress, cooperative Neck exam: ABSENT: JVD Respiratory exam: PRESENT: symmetrical, unlabored. ABSENT: accessory muscle use, retraction, tachypnea GI/Abdominal exam: PRESENT: soft. ABSENT: rigid, tenderness Neurological exam: PRESENT: alert, awake, oriented to person, oriented to place, oriented to time Psychiatric exam: ABSENT: agitated, anxious Results Laboratory Results: 09/28/20 04:26 09/29/20 04:24 09/21/20 23:45 Troponin I < 0.012 NT-Pro-B Natriuret Pep 91 Impressions: Chest X-Ray 09/21/20 23:08 IMPRESSION: Worsening bilateral infiltration. copyright 2011 [employer]- All Rights Reserved Chest/Abdomen CTA 09/27/20 00:00 IMPRESSION: 1. Positive for pulmonary emboli in branches of the lower lobe pulmonary arteries. No central emboli. 2. Viral pneumonia consistent with clinical history. Assessment and Plan - Diagnosis (1) Pneumonia due to COVID-19 virus Is this a current diagnosis for this admission?: Yes Plan: Dexamethasone day 8 s/p Ceftriaxone 7 days for MSSA pneumonia as well Remdesivir day 4/5 s/p covalascent plasma (2) Bilateral pulmonary embolism Is this a current diagnosis for this admission?: Yes Plan: CTA chest obtained showing bilateral PEs in the lower lobes. Associated with COVID-19. C/w Eliquis. (3) Acute respiratory failure with hypoxia Is this a current diagnosis for this admission?: Yes Plan: Secondary to COVID-19 pneumonia plus PEs. Not compliant with her nasal cannula. ambulatory pulse ox today for o2 qualification (4) Hyponatremia Is this a current diagnosis for this admission?: Yes (5) Costochondritis, acute Is this a current diagnosis for this admission?: Yes (6) Diabetes Qualifiers: Diabetes mellitus type: type 2 Diabetes mellitus intermodal owner operator truck driver insulin use: without intermodal owner operator truck driver use Diabetes mellitus complication status: without complication Qualified Code(s): E11.9 - Type 2 diabetes mellitus without complications Is this a current diagnosis for this admission?: Yes (7) Obesity (BMI 30-39.9) Is this a current diagnosis for this admission?: Yes - Time Time Spent with patient: Less than 15 minutes Anticipated Discharge Disposition: Home, Self Care Anticipated Discharge Timeframe: within 24 hours
[2020-09-30] MEDS: REMDESIVIR 100 MG in NORMAL SALINE 250 ML IV SCH (10:12)
[2020-10-01] MEDS: IPRATROPIUM/ALBUTEROL 0.5-2.5 MG/3 ML AMPUL NEB SCH ×2 (07:57→13:49)
[2020-10-01] MEDS: METFORMIN HCL 500 MG TABLET PO SCH (09:03)
[2020-10-01] MEDS: ZINC SULFATE 220 MG CAPSULE PO SCH (09:03)
[2020-10-01] MEDS: ASPIRIN 81 MG TABLET, ENT COATED PO SCH (09:03)
[2020-10-01] MEDS: ASCORBIC ACID 500 MG TABLET PO SCH (09:03)
[2020-10-01] MEDS: INSULIN LISPRO 100 UNIT/ML 3 ML VIAL SUBCUT SCH ×2 (09:03→12:15)
[2020-10-01] MEDS: CHOLECALCIFEROL (D3) 1,000 UNIT (25 MCG) TABLET PO SCH (09:03)
[2020-10-01] MEDS: APIXABAN 5 MG TABLET PO SCH (09:03)
[2020-10-01] MEDS: DEXAMETHASONE SOD PHOSPHATE INJ 4 MG/1 ML VIAL IV SCH (09:04)
[2020-10-01] MEDS: GUAIFENESIN 600 MG TABLET.SA PO SCH (09:04)
[2020-10-01] MEDS: REMDESIVIR 100 MG in NORMAL SALINE 250 ML IV SCH (11:07)
--- NOTE | 2020-10-01 12:23 | PDOC DISCHARGE SUMMARY ---
Impression - Admit/DC Date/PCP Admission Date/Primary Care Provider: 09/22/20 01:18 Discharge Date: 10/01/20 - Discharge Diagnosis (1) Pneumonia due to COVID-19 virus Is this a current diagnosis for this admission?: Yes (2) Bilateral pulmonary embolism Is this a current diagnosis for this admission?: Yes (3) Acute respiratory failure with hypoxia Is this a current diagnosis for this admission?: Yes (4) Hyponatremia Is this a current diagnosis for this admission?: Yes (5) Costochondritis, acute Is this a current diagnosis for this admission?: Yes (6) Diabetes Is this a current diagnosis for this admission?: Yes (7) Obesity (BMI 30-39.9) Is this a current diagnosis for this admission?: Yes - Additional Information Resuscitation Status: Full Code Discharge Diet: Diabetic [facility] - [facility] [NO LOCAL MD] - Follow up as needed Prescriptions: Apixaban [Eliquis 5 mg Tablet] See Protocol PO BID #68 tablet Home Medications: Metformin HCl 500 mg PO QAM 09/22/20 Apixaban [Eliquis 5 mg Tablet] See Protocol PO BID #68 tablet 10/01/20 History of Present Illiness History of Present Illness: LOLI EM is a 40 year old female with history of diabetes mellitus type 2, morbid obesity, who presents to the hospital with complaints of shortness of breath and cough. This has been going on for about a week. Cough is productive of yellowish sputum. She denies any hemoptysis. She admits to body aches which are mild. She also admits to subjective fevers. Shortness of breath was quite bad and she did had some dizziness and actually came to the ER about 4 days ago. At that time patient was tested for COVID-19 and discharged home on isolation. She was later called and told that her COVID-19 test was negative. Given the surprise, she decided to come back to the hospital to find out what was wrong with her. Her symptoms actually have not progressed since then but about the same. However, this time she was noted to be hypoxic at 88% on room air. Chest x-ray still shows bilateral infiltrates. Hospital Course Hospital Course: (1) Pneumonia due to COVID-19 virus Is this a current diagnosis for this admission?: Yes Plan: Received 9 days of dexamethasone Received ceftriaxone 7 days for MSSA pneumonia as well Completed 5 days of remdesivir s/p covalascent plasma (2) Bilateral pulmonary embolism Is this a current diagnosis for this admission?: Yes Plan: CTA chest obtained showing bilateral PEs in the lower lobes. Associated with COVID-19. Received therapeutic Lovenox and transitioned to Eliquis. We will give her coupons to go home with which she should be able to get free supply for her Eliquis. (3) Acute respiratory failure with hypoxia Is this a current diagnosis for this admission?: Yes Plan: Secondary to COVID-19 pneumonia plus PEs. Patient desaturates to 86-87% on room air when she ambulates. She does not feel symptomatic when she walks on room air. SPO2 rises to the mid 90s on 2 L nasal cannula on ambulation. Oxygen has been delivered to the hospital for patient prior to patient's departure so she is being sent home on 2 L NC. (4) Hyponatremia Is this a current diagnosis for this admission?: Yes (5) Costochondritis, acute Is this a current diagnosis for this admission?: Yes secondary to viral infection. [id number] analgesics as needed. Improved significantly at the time of discharge. (6) Diabetes Qualifiers: Diabetes mellitus type: type 2 Diabetes mellitus roasterman insulin use: without roasterman use Diabetes mellitus complication status: without complication Qualified Code(s): E11.9 - Type 2 diabetes mellitus without complications Is this a current diagnosis for this admission?: Yes Continue Metformin (7) Obesity (BMI 30-39.9) Is this a current diagnosis for this admission?: Yes Physical Exam Vital Signs: Temp Pulse Resp BP Pulse Ox 98.3 F 77 15 110/76 92 10/01/20 07:35 10/01/20 07:57 10/01/20 07:57 10/01/20 07:35 10/01/20 07:57 Intake & Output 09/30/20 10/01/20 10/02/20 06:59 06:59 06:59 Intake Total 1080 1010 Output Total 1110 Balance 1080 -100 Weight 114.7 kg 113.9 kg General appearance: PRESENT: no acute distress, cooperative Neck exam: ABSENT: JVD Respiratory exam: PRESENT: unlabored. ABSENT: accessory muscle use Cardiovascular exam: PRESENT: +S1, +S2. ABSENT: tachycardia GI/Abdominal exam: PRESENT: soft. ABSENT: tenderness Musculoskeletal exam: PRESENT: ambulatory Neurological exam: PRESENT: alert, awake, oriented to person, oriented to place, oriented to time Results Laboratory Results: WBC 6.0 10^3/uL (4.0-10.5) 09/28/20 04:26 RBC 4.12 10^6/uL (3.72-5.28) 09/28/20 04:26 Hgb 12.0 g/dL (12.0-15.5) 09/28/20 04:26 Hct 35.5 % (36.0-47.0) L 09/28/20 04:26 MCV 86 fl (80-97) 09/28/20 04:26 MCH 29.1 pg (27.0-33.4) 09/28/20 04:26 MCHC 33.7 g/dL (32.0-36.0) 09/28/20 04:26 RDW 13.1 % (11.5-14.0) 09/28/20 04:26 Plt Count 417 10^3/uL (150-450) 09/28/20 04:26 Lymph % (Auto) 22.3 % (13-45) 09/21/20 23:45 [place] % (Auto) 7.9 % (3-13) 09/21/20 23:45 Eos % (Auto) 2.1 % (0-6) 09/21/20 23:45 Baso % (Auto) 0.4 % (0-2) 09/21/20 23:45 Absolute Neuts (auto) 4.1 10^3/uL (1.7-8.2) 09/21/20 23:45 Absolute Lymphs (auto) 1.4 10^3/uL (0.5-4.7) 09/21/20 23:45 Absolute Monos (auto) 0.5 10^3/uL (0.1-1.4) 09/21/20 23:45 Absolute Eos (auto) 0.1 10^3/uL (0.0-0.6) 09/21/20 23:45 Absolute Basos (auto) 0.0 10^3/uL (0.0-0.2) 09/21/20 23:45 Seg Neutrophils % 67.3 % (42-78) 09/21/20 23:45 APTT 30.2 SEC (23.5-35.8) 09/28/20 04:26 D-Dimer 3.55 ug/mL (0.00-0.50) H 09/28/20 04:26 VBG pH 7.47 (7.30-7.42) H 09/21/20 23:45 VBG pCO2 42.8 mmHg (35-63) 09/21/20 23:45 VBG HCO3 30.1 mmol/L (20-32) 09/21/20 23:45 VBG Base Excess 5.7 mmol/L 09/21/20 23:45 Sodium 138.5 mmol/L (137-145) 09/29/20 04:24 Potassium 4.5 mmol/L (3.6-5.0) 09/29/20 04:24 Chloride 102 mmol/L (98-107) 09/29/20 04:24 Carbon Dioxide 25 mmol/L (22-30) 09/29/20 04:24 Anion Gap 12 (5-19) 09/29/20 04:24 BUN 17 mg/dL (7-20) 09/29/20 04:24 Creatinine 0.73 mg/dL (0.52-1.25) 09/29/20 04:24 Est GFR ( Amer) > 60 (>60) 09/29/20 04:24 Est GFR (MDRD) Non-Af > 60 (>60) 09/29/20 04:24 Glucose 162 mg/dL (75-110) H 09/29/20 04:24 POC Glucose 249 mg/dL (70-110) H 10/01/20 11:29 Calcium 9.7 mg/dL (8.4-10.2) 09/29/20 04:24 Phosphorus 5.5 mg/dL (2.5-4.5) H 09/23/20 04:49 Magnesium 2.4 mg/dL (1.6-2.3) H 09/21/20 23:45 Ferritin 106.00 ng/mL (6.2-137.0) 09/28/20 04:26 Total Bilirubin 0.7 mg/dL (0.2-1.3) 09/29/20 04:24 Direct Bilirubin 0.3 mg/dL (0.0-0.4) 09/29/20 04:24 Neonat Total Bilirubin Not Reportable 09/29/20 04:24 Neonat Direct Bilirubin Not Reportable 09/29/20 04:24 Neonat Indirect Bili Not Reportable 09/29/20 04:24 AST 32 U/L (14-36) 09/29/20 04:24 ALT 61 U/L (<35) H 09/29/20 04:24 Alkaline Phosphatase 76 U/L (38-126) 09/29/20 04:24 Lactate Dehydrogenase 518 U/L (120-246) H 09/22/20 08:24 Troponin I < 0.012 ng/mL 09/21/20 23:45 C-Reactive Protein 11.2 mg/L (<10.0) H 09/29/20 04:24 NT-Pro-B Natriuret Pep 91 pg/mL (<125) 09/21/20 23:45 Total Protein 7.2 g/dL (6.3-8.2) 09/29/20 04:24 Albumin 3.7 g/dL (3.5-5.0) 09/29/20 04:24 Serum HCG, Qual NEGATIVE (NEGATIVE) 09/21/20 23:45 Urine Color YELLOW 09/28/20 14:33 Urine Appearance CLEAR 09/28/20 14:33 Urine pH 6.0 (5.0-9.0) 09/28/20 14:33 Ur Specific [place] 1.020 09/28/20 14:33 Urine Protein NEGATIVE mg/dL (NEGATIVE) 09/28/20 14:33 Urine Glucose (UA) >=500 mg/dL (NEGATIVE) H 09/28/20 14:33 Urine Ketones NEGATIVE mg/dL (NEGATIVE) 09/28/20 14:33 Urine Blood NEGATIVE (NEGATIVE) 09/28/20 14:33 Urine Nitrite NEGATIVE (NEGATIVE) 09/28/20 14:33 Urine Bilirubin NEGATIVE (NEGATIVE) 09/28/20 14:33 Urine Urobilinogen NEGATIVE mg/dL (<2.0) 09/28/20 14:33 Ur Leukocyte Esterase NEGATIVE (NEGATIVE) 09/28/20 14:33 Urine WBC (Auto) 0 /HPF 09/28/20 14:33 Urine RBC (Auto) 0 /HPF 09/26/20 17:48 U Hyaline Cast (Auto) 1 /LPF 09/23/20 15:36 Squamous Epi Cells Auto <1 /HPF 09/28/20 14:33 Urine Mucus (Auto) MANY /LPF 09/26/20 12:40 Urine Ascorbic Acid 40 (NEGATIVE) H 09/28/20 14:33 COVID-19 Source See comment 09/22/20 01:36 COVID-19 (WINNIE) DETECTED (Not Detect) A 09/22/20 01:36 Influenza A (Rapid) NEGATIVE (NEGATIVE) 09/22/20 01:36 Influenza B (Rapid) NEGATIVE (NEGATIVE) 09/22/20 01:36 Blood Type O POSITIVE 09/23/20 10:11 Antibody Screen NEGATIVE 09/23/20 10:11 09/21/20 23:45 Troponin I < 0.012 NT-Pro-B Natriuret Pep 91 Impressions: Chest X-Ray 09/21/20 23:08 IMPRESSION: Worsening bilateral infiltration. copyright 2011 [employer]- All Rights Reserved Chest/Abdomen CTA 09/27/20 00:00 IMPRESSION: 1. Positive for pulmonary emboli in branches of the lower lobe pulmonary arteries. No central emboli. 2. Viral pneumonia consistent with clinical history. Plan Time Spent: Less than 30 Minutes Stroke Is this a Stroke Patient?: No Acute Heart Failure Is this a Heart Failure Patient?: No
[2020-10-01 13:55] VITALS: BP 122/72
== END 2020-10-01 14:15 | disposition home or self-care (01) | DRG 177 ==
LOC: ER 21:41 → EH 09-22 01:18 → 3N 09-22 03:55
PROVIDERS: ADMIT Internal Medicine; ATTEND Internal Medicine
PROC: XW13325 Transfusion of Convalescent Plasma (Nonautologous) into Peripheral Vein, Percutaneous Approach, New Technology Group 5 (ICD-10-PCS; principal; 2020-09-23)
PROC: XW033E5 Introduction of Remdesivir Anti-infective into Peripheral Vein, Percutaneous Approach, New Technology Group 5 (ICD-10-PCS; 2020-09-27)
PROC: 3E02340 Introduction of Influenza Vaccine into Muscle, Percutaneous Approach (ICD-10-PCS; 2020-10-01)
DX: U07.1 COVID-19 (principal); J12.89 Other viral pneumonia; J96.01 Acute respiratory failure with hypoxia; I26.99 Other pulmonary embolism without acute cor pulmonale; J15.211 Pneumonia due to Methicillin susceptible Staphylococcus aureus; E87.1 Hypo-osmolality and hyponatremia; M94.0 Chondrocostal junction syndrome [Tietze]; E11.65 Type 2 diabetes mellitus with hyperglycemia; T38.0X5A Adverse effect of glucocorticoids and synthetic analogues, initial encounter; Y92.230 Patient room in hospital as the place of occurrence of the external cause; E66.01 Morbid (severe) obesity due to excess calories; Z79.84 Long term (current) use of oral hypoglycemic drugs; Z23 Encounter for immunization; Z68.38 Body mass index [BMI] 38.0-38.9, adult; Z91.19 Patient's noncompliance with other medical treatment and regimen
CPT/HCPCS: 36415; 36430; 71045; 71275; 80048; 80053; 81001; 82728; 82803; 82962; 83615; 83735; 83880; 84100; 84484; 84703; 85025; 85027; 85379; 85730; 86140; 86850; 86900; 86901; 87040; 87070; 87077; 87086; 87186; 87205; 87635; 87804; 90471; 90686; 93005; 93010; 94640; 99285; C9803; G0008; J0456; J0696; J1100; J1650; J1815; J3490; J7030; J7050; J7060